=== PATIENT | male | born 1940 | race Caucasian/White ===

== ENCOUNTER 2016-12-14 17:16 | Inpatient (IN) | payer MEDICARE, OTHER ==
[~2016-12-14] VITALS: Ht 167.6 cm; Wt 76.8 kg
[2016-12-14 19:44] VITALS: BP 133/76; PULSE 79; RESP 18; TEMP 97.7; O2SAT 99
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
[2016-12-14 23:33] LABS: AUTOMATED NEUTROPHIL # 6.9 TH/MM3 (1.8-7.7); BASOPHIL # 0.1 TH/MM3 (0-0.2); BASOPHIL % 1.1 % (0.0-2.0); EOSINOPHIL # 0.5 TH/MM3 (0-0.4); HEMATOCRIT 41.1 % (39.0-51.0); HEMO FLAGS DIFF FINAL; LYMPH % 30.9 % (9.0-44.0); LYMPHOCYTE # 3.8 TH/MM3 (1.0-4.8); MEAN CELL VOLUME 86.7 FL (80.0-100.0); MEAN CORPUSCULAR HEMOGLOBIN 29.3 PG (27.0-34.0); MEAN CORPUSCULAR HGB CONC 33.8 % (32.0-36.0); MONO % 8.3 % (0.0-8.0); NEUT % 55.7 % (16.0-70.0); PLATELET COUNT 160 TH/MM3 (150-450); RED BLOOD COUNT 4.74 MIL/MM3 (4.50-5.90); RED CELL DISTRIBUTION WIDTH 12.8 % (11.6-17.2); WHITE BLOOD COUNT 12.3 TH/MM3 (4.0-11.0)
[2016-12-14 23:35] LABS: BLOOD, URINE NEG (NEG); GLUCOSE,URINE NEG (NEG); HYALINE CAST, URINE 1 /lpf (RARE); KETONE, URINE NEG (NEG); MUCUS URINE FEW /lpf (OCC); NITRITE,URINE NEG (NEG); PH, URINE 5.5 (5.0-8.5); SQUAMOUS EPITHELIAL CELL URINE <1 /hpf (0-5); TRANSITIONAL EPI CELLS, URINE <1 /hpf; URINE COLOR YELLOW (YELLW/STRAW)
[2016-12-14 23:37] LABS: COMMENT (UR) CULT NOT INDICATED; CULTURE IF INDICATED CULT NOT INDICATED
[2016-12-14 23:41] LABS: AMPHETAMINE, URINE NEG (NEG); BARBITURATES, URINE NEG (NEG); COCAINE, URINE NEG (NEG)
[2016-12-15 00:03] LABS: ANION GAP 12 MEQ/L (5-15); BICARBONATE 25.4 MEQ/L (21.0-32.0); BLOOD UREA NITROGEN 18 MG/DL (7-18); CHLORIDE 103 MEQ/L (98-107); GLOMERULAR FILTRATION RATE 75 ML/MIN (>89); POTASSIUM 3.6 MEQ/L (3.5-5.1); SODIUM (NA) 140 MEQ/L (136-145)
[2016-12-15 02:00] VITALS: BP 128/72; PULSE 81; RESP 14; O2SAT 100
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
[2016-12-15 07:54] VITALS: BP 131/70; PULSE 80; RESP 18; O2SAT 99
[2016-12-15] MEDS ORDERED: ACETAMINOPHEN 325 MG TAB PO PRN (11:00)
[2016-12-15] MEDS ORDERED: traZODone HCL 50 MG TAB PO PRN (11:00)
[2016-12-15] MEDS ORDERED: LORazepam 0.5 MG TAB PO PRN (11:00)
[2016-12-15] MEDS ORDERED: MAGNESIUM HYDROXIDE SUSP 30 ML CUP PO PRN (11:00)
[2016-12-15] MEDS ORDERED: LORazepam 2 MG/ML VIAL IM PRN ×2 (11:00)
[2016-12-15] MEDS ORDERED: ALUMINUM/MAGNESIUM/SIMETH 30 ML CUP PO PRN (11:00)
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
[2016-12-15 13:13] VITALS: BP 130/68; PULSE 78; RESP 20; O2SAT 99
[2016-12-15 14:00] VITALS: BP 186/84; PULSE 61; RESP 16; TEMP 97.6
[2016-12-15 17:49] VITALS: BP 136/70; PULSE 89; RESP 20; TEMP 97.8; O2SAT 90
[2016-12-15] MEDS ORDERED: METFPOW PO (18:30)
[2016-12-15] MEDS ORDERED: DEPA125T PO (18:30)
[2016-12-15] MEDS ORDERED: [UNRECOGNIZED DRUG - CODE] PO (18:30)
[2016-12-15] MEDS ORDERED: ALLO300T2 PO (18:30)
[2016-12-15] MEDS ORDERED: ASPI-110 PO (18:30)
[2016-12-15] MEDS ORDERED: CHOL1TAB42 PO (18:30)
[2016-12-15] MEDS ORDERED: CYAN100025 PO (18:30)
[2016-12-15] MEDS ORDERED: CARV12.52 PO (18:30)
[2016-12-15] MEDS ORDERED: CITA10SO5 PO (18:30)
[2016-12-15] MEDS ORDERED: MIRT1TAB PO (18:30)
[2016-12-15] MEDS ORDERED: OMEP20TA PO (18:30)
[2016-12-15] MEDS ORDERED: LYRI150C PO (18:30)
[2016-12-15] MEDS: REMOVE OLD NICODERM (NICOTINE) PATCH T-DERMAL SCH (21:00)
[2016-12-15] MEDS: LORazepam 1 MG TAB PO PRN (22:55)
[2016-12-16 06:00] VITALS: BP 144/63; PULSE 77; RESP 18; TEMP 98.1
[2016-12-16 08:33] LABS: AUTOMATED NEUTROPHIL # 5.6 TH/MM3 (1.8-7.7); BASOPHIL # 0.1 TH/MM3 (0-0.2); BASOPHIL % 0.6 % (0.0-2.0); EOSINOPHIL # 0.3 TH/MM3 (0-0.4); EOSINOPHIL % 2.9 % (0.0-4.0); HEMO FLAGS DIFF FINAL; LYMPH % 31.4 % (9.0-44.0); LYMPHOCYTE # 3.1 TH/MM3 (1.0-4.8); MEAN CELL VOLUME 85.4 FL (80.0-100.0); MEAN CORPUSCULAR HEMOGLOBIN 29.7 PG (27.0-34.0); MEAN CORPUSCULAR HGB CONC 34.7 % (32.0-36.0); MONO % 9.3 % (0.0-8.0); NEUT % 55.8 % (16.0-70.0); PLATELET COUNT 176 TH/MM3 (150-450); RED BLOOD COUNT 4.57 MIL/MM3 (4.50-5.90); RED CELL DISTRIBUTION WIDTH 13.4 % (11.6-17.2)
[2016-12-16] MEDS: NICOTINE 21 MG/24 HR PATCH T-DERMAL SCH (09:00)
[2016-12-16 09:13] LABS: ALKALINE PHOSPHATASE 79 U/L (45-117); ALT (GPT) 19 U/L (12-78); ANION GAP 9 MEQ/L (5-15); AST (GOT) 19 U/L (15-37); BICARBONATE 29.6 MEQ/L (21.0-32.0); BLOOD UREA NITROGEN 17 MG/DL (7-18); CHLORIDE 105 MEQ/L (98-107); GLOMERULAR FILTRATION RATE 75 ML/MIN (>89); HDL CHOLESTEROL 42.1 MG/DL (40.0-60.0); LDL CHOLESTEROL 63 MG/DL (0-99); POTASSIUM 3.5 MEQ/L (3.5-5.1); SODIUM (NA) 144 MEQ/L (136-145); TOTAL BILIRUBIN ADULT 0.5 MG/DL (0.2-1.0)
[2016-12-16] MEDS: ASPIRIN EC 81 MG TABEC PO SCH (12:15)
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
[2016-12-16] MEDS: PREGABALIN 75 MG CAP PO SCH ×2 (13:00→17:44)
--- NOTE | 2016-12-16 14:46 | EKG ---
Date Performed: 12/16/2016 Time Performed: 10:04:07 PTAGE: 76 years EKG: Sinus rhythm RIGHT BUNDLE BRANCH BLOCK ANTEROSEPTAL MYOCARDIAL INFARCTION , OF INDETERMINATE AGE ABNORMAL ECG NO PREVIOUS TRACING DOCTOR: Rony Hill Interpretating Date/Time 12/16/2016 14:46:07
[2016-12-16 18:00] VITALS: BP 125/65; PULSE 89; RESP 18; TEMP 98.1; O2SAT 98
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
[2016-12-16] MEDS: MIRTAZAPINE 15 MG TAB PO SCH (20:46)
[2016-12-16] MEDS: CARVEDILOL 12.5 MG TAB PO SCH (20:46)
[2016-12-16] MEDS: GALANTAMINE HYDROBROMIDE 4 MG TAB PO SCH (20:47)
[2016-12-16] MEDS: DIVALPROEX SODIUM SPRINKLES 125 MG CAP PO SCH (20:47)
[2016-12-16] MEDS: REMOVE OLD NICODERM (NICOTINE) PATCH T-DERMAL SCH (21:00)
[2016-12-17 06:17] VITALS: BP 133/69; PULSE 65; RESP 18; TEMP 99.2; O2SAT 99
[2016-12-17] MEDS: NICOTINE 21 MG/24 HR PATCH T-DERMAL SCH (09:00)
[2016-12-17] MEDS: CYANOCOBALAMIN 1,000 MCG TAB PO SCH (09:00)
[2016-12-17] MEDS: PREGABALIN 75 MG CAP PO SCH ×3 (09:32→18:01)
[2016-12-17] MEDS: DIVALPROEX SODIUM SPRINKLES 125 MG CAP PO SCH ×2 (09:32→21:17)
[2016-12-17] MEDS: GALANTAMINE HYDROBROMIDE 4 MG TAB PO SCH ×2 (09:32→21:16)
[2016-12-17] MEDS: metFORMIN HCL 500 MG TAB PO SCH (09:32)
[2016-12-17] MEDS: CITALOPRAM HYDROBROMIDE 20 MG TAB PO SCH (09:32)
[2016-12-17] MEDS: ALLOPURINOL 300 MG TAB PO SCH (09:32)
[2016-12-17] MEDS: CHOLECALCIFEROL (VIT D3) 1000 UNIT TAB PO SCH (09:32)
[2016-12-17] MEDS: CARVEDILOL 12.5 MG TAB PO SCH ×2 (09:32→21:16)
[2016-12-17] MEDS: ASPIRIN EC 81 MG TABEC PO SCH (09:32)
[2016-12-17] MEDS: PANTOPRAZOLE SOD 20 MG DELAYED RELEASE TAB PO SCH (09:33)
[2016-12-17 12:47] LABS: HEMOGLOBIN A1a 1.6 %; HEMOGLOBIN Ao 84.4 %; HEMOGLOBIN LA1C 1.8 %; HEMOGLOBIN P3 3.9 %
--- NOTE | 2016-12-17 13:24 | HHI.PYPN ---
Subjective Remarks Pt seen and discussed with staff. He has been seclusive to room but cooperative with care. Compliant with medications and denies side effects. He reported feeling depressed to RN earlier today but denies depression to MD, stating that he feels "happy". No SI/HI. 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 Estimated LOS: days Justification for Cont. Inpt. risk of decompensation Nataliya Murguia MD December 17, 2016 1:24 pm
[2016-12-17] MEDS: LORazepam 1 MG TAB PO PRN (14:35)
[2016-12-17 20:03] VITALS: BP 146/72; PULSE 71; RESP 18; TEMP 97.7; O2SAT 99
[2016-12-17] MEDS: REMOVE OLD NICODERM (NICOTINE) PATCH T-DERMAL SCH (21:00)
[2016-12-17] MEDS: MIRTAZAPINE 15 MG TAB PO SCH (21:16)
[2016-12-18 05:43] VITALS: BP 141/65; PULSE 68; RESP 18; TEMP 97.9; O2SAT 99
[2016-12-18] MEDS: ASPIRIN EC 81 MG TABEC PO SCH (08:18)
[2016-12-18] MEDS: metFORMIN HCL 500 MG TAB PO SCH (08:18)
[2016-12-18] MEDS: CARVEDILOL 12.5 MG TAB PO SCH ×2 (08:18→21:35)
[2016-12-18] MEDS: DIVALPROEX SODIUM SPRINKLES 125 MG CAP PO SCH ×2 (08:18→21:34)
[2016-12-18] MEDS: CITALOPRAM HYDROBROMIDE 20 MG TAB PO SCH (08:18)
[2016-12-18] MEDS: ALLOPURINOL 300 MG TAB PO SCH (08:19)
[2016-12-18] MEDS: GALANTAMINE HYDROBROMIDE 4 MG TAB PO SCH ×2 (08:19→21:35)
[2016-12-18] MEDS: PREGABALIN 75 MG CAP PO SCH ×3 (08:19→17:47)
[2016-12-18] MEDS: CHOLECALCIFEROL (VIT D3) 1000 UNIT TAB PO SCH (08:19)
[2016-12-18] MEDS: NICOTINE 21 MG/24 HR PATCH T-DERMAL SCH (08:19)
[2016-12-18] MEDS: PANTOPRAZOLE SOD 20 MG DELAYED RELEASE TAB PO SCH (08:19)
[2016-12-18] MEDS: CYANOCOBALAMIN 1,000 MCG TAB PO SCH (08:19)
[2016-12-18] MEDS: REMOVE OLD NICODERM (NICOTINE) PATCH T-DERMAL SCH (08:20)
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
[2016-12-18] MEDS ORDERED: MELATONIN 5 MG TAB PO PRN (14:45)
[2016-12-18] MEDS ORDERED: diphenhydrAMINE HCL 25 MG CAP PO PRN (14:45)
[2016-12-18] MEDS ORDERED: HALOPERIDOL 1 MG TAB PO PRN (14:45)
[2016-12-18] MEDS ORDERED: HALOPERIDOL LACTATE 5 MG/ML AMP IM PRN (14:45)
[2016-12-18] MEDS ORDERED: diphenhydrAMINE HCL 50 MG/ML VIAL IM PRN (14:45)
--- NOTE | 2016-12-18 16:15 | HHI.PR ---
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 denies fevers/chills denies headache, dizziness denies nausea, abdominal pain Objective Vitals Vital Signs Date Time Temp Pulse Resp B/P Pulse Ox O2 Delivery O2 Flow Rate FiO2 12/18/16 05:43 97.9 68 18 141/65 99 12/17/16 21:20 20 12/17/16 20:03 97.7 71 18 146/72 99 I/O 12/17/16 12/17/16 12/17/16 12/18/16 12/18/16 12/18/16 07:00 15:00 23:00 07:00 15:00 23:00 Intake Total 480 ml 0 ml 840 ml Output Total 1 ml Balance 479 ml 0 ml 840 ml Intake Oral 480 ml 0 ml 840 ml Output Stool Total 1 ml # Voids 3 1 Result Diagram: 12/16/1672912/16/16729 Objective Remarks GENERAL: This is a well-nourished, well-developed patient, in no apparent distress. SKIN: No rashes, ecchymoses or lesions. Cool and dry. HEAD: Atraumatic. Normocephalic. No temporal or scalp tenderness. EYES: Pupils equal round and reactive. Extraocular motions intact. No scleral icterus. No injection or drainage. ENT: Nose without bleeding, purulent drainage or septal hematoma. Throat without erythema, tonsillar hypertrophy or exudate. Uvula midline. Airway patent. NECK: Trachea midline. No JVD or lymphadenopathy. Supple, nontender, no meningeal signs. CARDIOVASCULAR: Regular rate and rhythm without murmurs, gallops, or rubs. RESPIRATORY: Faint crackles bilaterally. No rhonchi or wheezing auscultated. GASTROINTESTINAL: Abdomen soft, non-tender, nondistended. No hepato-splenomegaly , or palpable masses. No guarding. MUSCULOSKELETAL: Extremities without clubbing, cyanosis, or edema. No joint tenderness, effusion, or edema noted. No calf tenderness. Negative Homans sign bilaterally. R BKA - well healed stump. NEUROLOGICAL: Awake and alert. Cranial nerves II through XII intact. Motor and sensory grossly within normal limits. Five out of 5 muscle strength in all muscle groups. Normal speech. Medications and IVs Current Medications Medications (Trade) Dose Ordered Sig/Kenzie Route Start Time Stop Time Status Last Admin (Tylenol) 650 mg Q4H PRN PO 12/15/16 11:00 12/17/16 14:36 (Milk Of Magnesia Liq) 30 ml DAILY PRN PO 12/15/16 11:00 (Mag-Al Plus Susp Liq) 30 ml Q6H PRN PO 12/15/16 11:00 (Habitrol 21 Mg Patch.24 Hr) 1 patch DAILY T-DERMAL 12/16/16 09:00 Miscellaneous Information 1 HS T-DERMAL 12/15/16 21:00 (Zyloprim) 300 mg DAILY PO 12/17/16 09:00 12/18/16 08:19 (Ecotrin Ec) 81 mg DAILY PO 12/16/16 12:15 12/18/16 08:18 (Coreg) 12.5 mg BID PO 12/16/16 21:00 12/18/16 08:18 (Depakote Sprinkles) 125 mg BID PO 12/16/16 21:00 12/18/16 08:18 (Remeron) 7.5 mg HS PO 12/16/16 21:00 12/17/16 21:16 (Lyrica) 150 mg TID PO 12/16/16 13:00 12/18/16 13:00 (Vitamin B12) 1,000 mcg DAILY PO 12/17/16 09:00 12/18/16 08:19 (Razadyne) 12 mg BID PO 12/16/16 21:00 12/18/16 08:19 (Glucophage) 500 mg DAILY PO 12/17/16 09:00 12/18/16 08:18 (Protonix) 20 mg DAILY PO 12/17/16 09:00 12/18/16 08:19 (Vitamin D3) 2,000 units DAILY PO 12/17/16 09:00 12/18/16 08:19 (Haldol) 0.5 mg BID PO 12/18/16 21:00 (Haldol) 1 mg BID PRN PO 12/18/16 14:45 (Haldol Inj) 1 mg BID PRN IM 12/18/16 14:45 (Melatonin) 5 mg HS PRN PO 12/18/16 14:45 (Benadryl Inj) 25 mg Q6H PRN IM 12/18/16 14:45 (Benadryl) 25 mg Q6H PRN PO 12/18/16 14:45 Urinary Catheter: No Vascular Central Line Catheter: No A/P Problem List: (1) Dementia with aggressive behavior ICD Code: F03.91 Status: Acute Plan: management as per psychiatry Patient currently on Depakote, Celexa, Remeron, Razadyne, haloperidol (2) Diabetes ICD Code: E11.9 Status: Acute Plan: Blood sugar seems stable. Continue metformin. Hemoglobin A1c 5.9 - diabetes is controlled. (3) HTN (hypertension) ICD Code: I10 Status: Chronic Plan: Bp stable, continue coreg (4) Hyperlipidemia ICD Code: E78.5 Status: Chronic Plan: Which seemed to be diet controlled. Patient not on medications. Total cholesterol 135, LDL cholesterol 63. (5) Gout ICD Code: M10.9 Status: Acute Plan: on allopurinol, stable Assessment and Plan I will sign off please reconsult as needed. 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
[2016-12-18 17:19] LABS: BACTERIA, URINE RARE /hpf; BLOOD, URINE NEG (NEG); COMMENT (UR) CULT NOT INDICATED; CULTURE IF INDICATED CULT NOT INDICATED; GLUCOSE,URINE NEG (NEG); KETONE, URINE NEG (NEG); MUCUS URINE FEW /lpf (OCC); NITRITE,URINE NEG (NEG); PH, URINE 5.5 (5.0-8.5); SQUAMOUS EPITHELIAL CELL URINE <1 /hpf (0-5); URINE COLOR YELLOW (YELLW/STRAW)
[2016-12-18 18:29] VITALS: BP 136/65; PULSE 66; RESP 18; TEMP 98.9; O2SAT 100
[2016-12-18] MEDS: MIRTAZAPINE 15 MG TAB PO SCH (21:35)
[2016-12-18] MEDS: HALOPERIDOL 0.5 MG TAB PO SCH (21:35)
[2016-12-19 06:13] VITALS: BP 124/60; PULSE 56; RESP 18; TEMP 97.9; O2SAT 97
[2016-12-19] MEDS: PREGABALIN 75 MG CAP PO SCH ×3 (09:00→18:42)
[2016-12-19] MEDS: ASPIRIN EC 81 MG TABEC PO SCH (09:00)
[2016-12-19] MEDS: DIVALPROEX SODIUM SPRINKLES 125 MG CAP PO SCH ×2 (09:00→21:49)
[2016-12-19] MEDS: CYANOCOBALAMIN 1,000 MCG TAB PO SCH (09:00)
[2016-12-19] MEDS: HALOPERIDOL 0.5 MG TAB PO SCH ×2 (09:00→21:49)
[2016-12-19] MEDS: ALLOPURINOL 300 MG TAB PO SCH (09:00)
[2016-12-19] MEDS: NICOTINE 21 MG/24 HR PATCH T-DERMAL SCH (09:00)
[2016-12-19] MEDS: CARVEDILOL 12.5 MG TAB PO SCH ×2 (09:00→21:49)
[2016-12-19] MEDS: PANTOPRAZOLE SOD 20 MG DELAYED RELEASE TAB PO SCH (09:00)
[2016-12-19] MEDS: CHOLECALCIFEROL (VIT D3) 1000 UNIT TAB PO SCH (09:00)
[2016-12-19] MEDS: metFORMIN HCL 500 MG TAB PO SCH (09:00)
[2016-12-19] MEDS: GALANTAMINE HYDROBROMIDE 4 MG TAB PO SCH ×2 (09:00→21:49)
--- NOTE | 2016-12-19 10:47 | PD.TTN ---
Present for Treatment Team Treatment Team Staff: Provider, Nurse, Psych Therapist, Occupational Therapist Patient Problems 1. Discharge planning 2. Medication compliance 3. Knowledge deficit 4. Lack of coping skills Progress Toward Goals [facility] Nurse Input: Patient has had no behavioral issues on the unit and is overall plesant. Patient is oriented to place but not to situation. Patient believes that patient is at [facility] for prostetic leg. Psych Therapist Input: Counselor spoke with in regards placement. Once patient is stablized, patient will be able to return to [facility] Occupational Therapist Input: Patient is not participating in group. Kimberley Nelson [facility] December 19, 2016 10:47
--- NOTE | 2016-12-19 15:38 | HHI.PYPN ---
Subjective Remarks Patient seen and examined. Chart reviewed. Case discussed in treatment team. Nursing reports that the patient has been no behavioral problem. oral surgery technician reported to RN that patient's prosthesis cannot be fitted in house and so this will need to wait until after discharge; he is in a wheelchair presently. On my examination today, the patient is calm and cooperative with evaluation. He remains at his confused baseline. No psychotic symptoms. No evidence of behavioral disturbance. Denies side effects from medications. No physical complaints. Review of Systems ROS Limitations: Poor Historian Except as stated in HPI: all other systems reviewed are Neg Objective Alert: Yes [place]: Person Mood: Calm Affect: Euthymic Memory Intact: Comment (Impaired) Hallucinations: Other (No AVH) Delusions: No Delusion Type: Other (No delusions) Suicidal: Ideation (No SI) Homicidal: Ideation (No HI) Insight/Judgment Poor Remarks No motor abnormalities noted. Thought process somewhat scattered consistent with dementia diagnosis. Labs Test 12/18/16 16:00 Urine Color YELLOW Urine Turbidity CLEAR Urine pH 5.5 Urine Specific [place] 1.019 Urine Protein NEG mg/dL Urine Glucose (UA) NEG mg/dL Urine Ketones NEG mg/dL Urine Occult Blood NEG Urine Nitrite NEG Urine Bilirubin NEG Urine Urobilinogen LESS THAN 2.0 MG/DL Urine Leukocyte Esterase NEG Urine WBC 2 /hpf Urine Squamous Epithelial <1 /hpf Cells Urine Bacteria RARE /hpf Urine Mucus FEW /lpf Microscopic Urinalysis Comment CULT NOT INDICATED Labs reviewed. Vitals/IOs Vital Signs Date Time Temp Pulse Resp B/P Pulse Ox O2 Delivery O2 Flow Rate FiO2 12/19/16 06:13 97.9 56 18 124/60 97 12/15/16 13:13 Room Air Intake and Output 12/18/16 12/18/16 12/19/16 08:00 16:00 00:00 Intake Total 840 ml 1590 ml Balance 840 ml 1590 ml Assessment & Plan Problem List: (1) Dementia of Alzheimer's type with behavioral disturbance ICD Code: G30.8 Assessment & Plan Continue Haldol as ordered. Continue other psychotropics as ordered. Continue to monitor on the inpatient unit. Continue other medications and care as ordered. Justification for Cont. Inpt. High risk for decompensation in a less restrictive environment. Discharge Planning Placement. Unclear if patient is welcome to return to her existing placement. Counselor to explore this. Request HC Surrog/Guard Advoc?: Yes Problem Qualifiers (1) Dementia of Alzheimer's type with behavioral disturbance: Qualified Code: G30.8 - Alzheimer's dementia with behavioral disturbance, unspecified timing of dementia onset Mario Alberto Almanza MD December 19, 2016 15:38
[2016-12-19 17:20] VITALS: BP 157/64; PULSE 60; RESP 18; TEMP 96.7
[2016-12-19] MEDS: REMOVE OLD NICODERM (NICOTINE) PATCH T-DERMAL SCH (21:00)
[2016-12-19] MEDS: MIRTAZAPINE 15 MG TAB PO SCH (21:49)
[2016-12-20 05:56] VITALS: BP 142/66; PULSE 67; RESP 16; TEMP 98.2; O2SAT 95
[2016-12-20] MEDS: DIVALPROEX SODIUM SPRINKLES 125 MG CAP PO SCH ×2 (08:51→20:10)
[2016-12-20] MEDS: PREGABALIN 75 MG CAP PO SCH ×3 (08:51→18:38)
[2016-12-20] MEDS: CHOLECALCIFEROL (VIT D3) 1000 UNIT TAB PO SCH (08:51)
[2016-12-20] MEDS: ASPIRIN EC 81 MG TABEC PO SCH (08:51)
[2016-12-20] MEDS: ALLOPURINOL 300 MG TAB PO SCH (08:51)
[2016-12-20] MEDS: CARVEDILOL 12.5 MG TAB PO SCH ×2 (08:51→20:09)
[2016-12-20] MEDS: metFORMIN HCL 500 MG TAB PO SCH (08:52)
[2016-12-20] MEDS: PANTOPRAZOLE SOD 20 MG DELAYED RELEASE TAB PO SCH (08:52)
[2016-12-20] MEDS: CYANOCOBALAMIN 1,000 MCG TAB PO SCH (08:52)
[2016-12-20] MEDS: HALOPERIDOL 0.5 MG TAB PO SCH ×2 (08:52→20:10)
[2016-12-20] MEDS: NICOTINE 21 MG/24 HR PATCH T-DERMAL SCH (09:00)
[2016-12-20] MEDS: GALANTAMINE HYDROBROMIDE 4 MG TAB PO SCH ×2 (09:00→20:10)
--- NOTE | 2016-12-20 13:39 | HHI.PYPN ---
Subjective Remarks Patient seen and examined with nurse. Chart reviewed. Case discussed with nursing staff who reports that the patient was upset when he was served with papers related to the [place] this morning. When I evaluate the patient in the early afternoon, he has calmed. He says that he is "no longer worried" about the paperwork, although he does not seem to recall what it was about in the first place. He is at his confused baseline. Affect seems bright and generally euthymic. No side effects from medications. No physical complaints. Review of Systems ROS Limitations: Poor Historian Except as stated in HPI: all other systems reviewed are Neg Objective Alert: Yes [place]: Person Mood: Calm Affect: Appropriate Memory Intact: Comment (remains impaired on clinical exam) Hallucinations: Other (No AVH) Delusions: No Delusion Type: Other (no delusional material) Suicidal: Ideation (No SI) Homicidal: Ideation (No HI) Insight/Judgment Poor Remarks No abnormal motor movements noted. Thought process somewhat scattered consistent with dementia diagnosis. Labs Labs reviewed. Vitals/IOs Vital Signs Date Time Temp Pulse Resp B/P Pulse Ox O2 Delivery O2 Flow Rate FiO2 12/20/16 05:56 98.2 67 16 142/66 95 Intake and Output 12/19/16 12/19/16 12/20/16 08:00 16:00 00:00 Intake Total 390 ml Balance 390 ml Assessment & Plan Problem List: (1) Dementia of Alzheimer's type with behavioral disturbance ICD Code: G30.8 Assessment & Plan Continue Haldol as ordered. Continue Remeron and Depakote as ordered. Continue to monitor on the inpatient unit. Continue other medications and care as ordered. Justification for Cont. Inpt. High risk for decompensation in a less restrictive environment. 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 Discharge Planning Counselor tells me that [facility] is going to consider the patient for readmission to that facility. Request HC Surrog/Guard Advoc?: Yes Problem Qualifiers (1) Dementia of Alzheimer's type with behavioral disturbance: Qualified Code: G30.8 - Alzheimer's dementia with behavioral disturbance, unspecified timing of dementia onset Mario Alberto Almanza MD December 20, 2016 13:39
[2016-12-20 20:00] VITALS: BP 112/56; PULSE 65; RESP 18; TEMP 97.9
[2016-12-20] MEDS: MIRTAZAPINE 15 MG TAB PO SCH (20:10)
[2016-12-20] MEDS: REMOVE OLD NICODERM (NICOTINE) PATCH T-DERMAL SCH (20:11)
[2016-12-21 05:20] VITALS: BP 118/56; PULSE 61; RESP 16; TEMP 97.5; O2SAT 96
[2016-12-21 09:00] VITALS: BP 124/58; PULSE 73
[2016-12-21] MEDS: NICOTINE 21 MG/24 HR PATCH T-DERMAL SCH (09:00)
[2016-12-21] MEDS: ASPIRIN EC 81 MG TABEC PO SCH (09:22)
[2016-12-21] MEDS: metFORMIN HCL 500 MG TAB PO SCH (09:22)
[2016-12-21] MEDS: CARVEDILOL 12.5 MG TAB PO SCH ×2 (09:22→21:08)
[2016-12-21] MEDS: PREGABALIN 75 MG CAP PO SCH ×3 (09:22→17:19)
[2016-12-21] MEDS: ALLOPURINOL 300 MG TAB PO SCH (09:23)
[2016-12-21] MEDS: PANTOPRAZOLE SOD 20 MG DELAYED RELEASE TAB PO SCH (09:23)
[2016-12-21] MEDS: CYANOCOBALAMIN 1,000 MCG TAB PO SCH (09:23)
[2016-12-21] MEDS: HALOPERIDOL 0.5 MG TAB PO SCH ×2 (09:23→21:07)
[2016-12-21] MEDS: DIVALPROEX SODIUM SPRINKLES 125 MG CAP PO SCH ×2 (09:24→21:08)
[2016-12-21] MEDS: CHOLECALCIFEROL (VIT D3) 1000 UNIT TAB PO SCH (09:24)
[2016-12-21] MEDS: GALANTAMINE HYDROBROMIDE 4 MG TAB PO SCH ×2 (09:32→21:07)
--- NOTE | 2016-12-21 16:40 | HHI.PYPN ---
Subjective Remarks Patient seen and case discussed with nursing staff. Chart reviewed. Per RN, patient has been social. For me, patient is calm and pleasant. He remains in good behavioral control. No evident side effects from medications. Patient's case was presented to the [place] [facility] and placed in 4 week continuance. Review of Systems ROS Limitations: Poor Historian Except as stated in HPI: all other systems reviewed are Neg Objective Alert: Yes [place]: Person Mood: Calm Affect: Euthymic Memory Intact: Comment (Impaired) Hallucinations: Other (None) Delusions: No Delusion Type: Other (None) Suicidal: Ideation (No SI) Homicidal: Ideation (No HI) Insight/Judgment poor Remarks No motor abnormalities noted. Labs Labs reviewed. Vitals/IOs Vital Signs Date Time Temp Pulse Resp B/P Pulse Ox O2 Delivery O2 Flow Rate FiO2 12/21/16 09:00 73 124/58 12/21/16 05:20 97.5 16 96 Intake and Output 12/20/16 12/20/16 12/21/16 08:00 16:00 00:00 Intake Total 1200 ml 840 ml Balance 1200 ml 840 ml Assessment & Plan Problem List: (1) Dementia of Alzheimer's type with behavioral disturbance ICD Code: G30.8 Assessment & Plan Continue Haldol and other psychotropics as ordered. Continue other medications and care as ordered. Justification for Cont. Inpt. High risk for decompensation in a less restrictive environment. Discharge Planning Return to facility versus new placement. Request HC Surrog/Guard Advoc?: Yes Problem Qualifiers (1) Dementia of Alzheimer's type with behavioral disturbance: Qualified Code: G30.8 - Alzheimer's dementia with behavioral disturbance, unspecified timing of dementia onset Mario Alberto Almanza MD Dec 21, 2016 16:40
[2016-12-21 18:00] VITALS: BP 123/58; PULSE 68; RESP 17; TEMP 97.8; O2SAT 95
[2016-12-21] MEDS: REMOVE OLD NICODERM (NICOTINE) PATCH T-DERMAL SCH (21:00)
[2016-12-21] MEDS: MIRTAZAPINE 15 MG TAB PO SCH (21:08)
[2016-12-22 06:00] VITALS: BP 131/63; PULSE 66; RESP 18; TEMP 97.9
[2016-12-22] MEDS: NICOTINE 21 MG/24 HR PATCH T-DERMAL SCH (09:00)
[2016-12-22] MEDS: CYANOCOBALAMIN 1,000 MCG TAB PO SCH (09:12)
[2016-12-22] MEDS: DIVALPROEX SODIUM SPRINKLES 125 MG CAP PO SCH ×2 (09:13→21:19)
[2016-12-22] MEDS: PREGABALIN 75 MG CAP PO SCH ×3 (09:13→16:53)
[2016-12-22] MEDS: metFORMIN HCL 500 MG TAB PO SCH (09:13)
[2016-12-22] MEDS: ASPIRIN EC 81 MG TABEC PO SCH (09:13)
[2016-12-22] MEDS: CHOLECALCIFEROL (VIT D3) 1000 UNIT TAB PO SCH (09:13)
[2016-12-22] MEDS: GALANTAMINE HYDROBROMIDE 4 MG TAB PO SCH ×2 (09:13→21:19)
[2016-12-22] MEDS: PANTOPRAZOLE SOD 20 MG DELAYED RELEASE TAB PO SCH (09:13)
[2016-12-22] MEDS: CARVEDILOL 12.5 MG TAB PO SCH ×2 (09:14→21:20)
[2016-12-22] MEDS: ALLOPURINOL 300 MG TAB PO SCH (09:14)
[2016-12-22] MEDS: HALOPERIDOL 0.5 MG TAB PO SCH ×2 (09:14→21:20)
--- NOTE | 2016-12-22 17:51 | HHI.PYPN ---
Subjective Remarks Patient seen and examined. Chart reviewed. Case discussed with nursing staff who reports the patient slept well overnight and has been no behavioral problem. On my examination today, the patient is out socializing in the day area. He is in good spirits. No evidence of any psychotic process. No SI or HI voiced. No physical complaints. No side effects from medications. Review of Systems ROS Limitations: Poor Historian Except as stated in HPI: all other systems reviewed are Neg Objective Alert: Yes [place]: Person Mood: Calm Affect: Euthymic (remains euthymic) Memory Intact: Comment (remains impaired on clinical exam) Hallucinations: Other (no AVH) Delusions: No Delusion Type: Other (no delusions) Suicidal: Ideation (No SI) Homicidal: Ideation (No HI) Insight/Judgment Poor Remarks No motor abnormalities noted Labs Labs reviewed. Vitals/IOs Vital Signs Date Time Temp Pulse Resp B/P Pulse Ox O2 Delivery O2 Flow Rate FiO2 12/22/16 06:00 97.9 66 18 131/63 12/21/16 18:00 95 Intake and Output 12/21/16 12/21/16 12/22/16 08:00 16:00 00:00 Intake Total 480 ml 960 ml 960 ml Balance 480 ml 960 ml 960 ml Assessment & Plan Problem List: (1) Dementia of Alzheimer's type with behavioral disturbance ICD Code: G30.8 Assessment & Plan Continue Haldol as ordered. Continue to monitor on the inpatient unit. Continue other medications and care as ordered. Justification for Cont. Inpt. High risk for decompensation in a less restrictive environment. Discharge Planning Placement either at referring facility or new facility Request HC Surrog/Guard Advoc?: Yes Problem Qualifiers (1) Dementia of Alzheimer's type with behavioral disturbance: Qualified Code: G30.8 - Alzheimer's dementia with behavioral disturbance, unspecified timing of dementia onset Mario Alberto Almanza MD Dec 22, 2016 17:51
[2016-12-22 19:32] VITALS: BP 116/66; PULSE 92; RESP 16; TEMP 97.6; O2SAT 96
[2016-12-22] MEDS: REMOVE OLD NICODERM (NICOTINE) PATCH T-DERMAL SCH (21:00)
[2016-12-22] MEDS: MIRTAZAPINE 15 MG TAB PO SCH (21:19)
[2016-12-23 05:43] VITALS: BP 131/58; PULSE 61; RESP 16; TEMP 97.7; O2SAT 96
[2016-12-23] MEDS: CYANOCOBALAMIN 1,000 MCG TAB PO SCH (09:00)
[2016-12-23] MEDS: NICOTINE 21 MG/24 HR PATCH T-DERMAL SCH (09:00)
[2016-12-23] MEDS: CHOLECALCIFEROL (VIT D3) 1000 UNIT TAB PO SCH (09:00)
[2016-12-23] MEDS: ALLOPURINOL 300 MG TAB PO SCH (09:04)
[2016-12-23] MEDS: PREGABALIN 75 MG CAP PO SCH ×3 (09:04→18:00)
[2016-12-23] MEDS: GALANTAMINE HYDROBROMIDE 4 MG TAB PO SCH ×2 (09:04→21:18)
[2016-12-23] MEDS: ASPIRIN EC 81 MG TABEC PO SCH (09:04)
[2016-12-23] MEDS: HALOPERIDOL 0.5 MG TAB PO SCH ×2 (09:05→21:18)
[2016-12-23] MEDS: metFORMIN HCL 500 MG TAB PO SCH (09:05)
[2016-12-23] MEDS: DIVALPROEX SODIUM SPRINKLES 125 MG CAP PO SCH ×2 (09:05→21:18)
[2016-12-23] MEDS: CARVEDILOL 12.5 MG TAB PO SCH ×2 (09:05→21:18)
[2016-12-23] MEDS: PANTOPRAZOLE SOD 20 MG DELAYED RELEASE TAB PO SCH (09:05)
--- NOTE | 2016-12-23 14:22 | HHI.PYPN ---
Subjective Remarks Pt presents for f/u. He has been calm and cooperative. Staff report some bizarre behavior (Trying to put amputated limb into a shoe and walk), but no agitation. He is irritable on approach and refuses to cooperate with MD interview. Objective Alert: Yes [place]: Person Mood: Calm Affect: Restricted Memory Intact: Comment (remains impaired on clinical exam) Hallucinations: Other (no AVH) Delusions: No Delusion Type: Other (no delusions) Suicidal: Ideation (No SI) Homicidal: Ideation (No HI) Insight/Judgment poor Vitals/IOs Vital Signs Date Time Temp Pulse Resp B/P Pulse Ox O2 Delivery O2 Flow Rate FiO2 12/23/16 14:01 16 12/23/16 05:43 97.7 61 131/58 96 Intake and Output 12/22/16 12/22/16 12/23/16 08:00 16:00 00:00 Intake Total 360 ml Balance 360 ml Assessment & Plan Problem List: (1) Dementia of Alzheimer's type with behavioral disturbance ICD Code: G30.8 Assessment & Plan Continue current tx plan. Estimated LOS: days Justification for Cont. Inpt. risk of decompensation Request HC Surrog/Guard Advoc?: Yes Problem Qualifiers (1) Dementia of Alzheimer's type with behavioral disturbance: Qualified Code: G30.8 - Alzheimer's dementia with behavioral disturbance, unspecified timing of dementia onset Nataliya Murguia MD Dec 23, 2016 14:22
[2016-12-23 18:00] VITALS: BP 124/56; PULSE 67; RESP 17; TEMP 96.7; O2SAT 98
[2016-12-23] MEDS: REMOVE OLD NICODERM (NICOTINE) PATCH T-DERMAL SCH (21:00)
[2016-12-23] MEDS: MIRTAZAPINE 15 MG TAB PO SCH (21:18)
[2016-12-24 06:00] VITALS: BP 131/62; PULSE 62; RESP 16; TEMP 98.1; O2SAT 96
[2016-12-24] MEDS: NICOTINE 21 MG/24 HR PATCH T-DERMAL SCH (09:00)
[2016-12-24] MEDS: CYANOCOBALAMIN 1,000 MCG TAB PO SCH (09:53)
[2016-12-24] MEDS: metFORMIN HCL 500 MG TAB PO SCH (09:53)
[2016-12-24] MEDS: ALLOPURINOL 300 MG TAB PO SCH (09:53)
[2016-12-24] MEDS: PREGABALIN 75 MG CAP PO SCH ×3 (09:53→18:26)
[2016-12-24] MEDS: CHOLECALCIFEROL (VIT D3) 1000 UNIT TAB PO SCH (09:53)
[2016-12-24] MEDS: CARVEDILOL 12.5 MG TAB PO SCH ×2 (09:53→21:24)
[2016-12-24] MEDS: GALANTAMINE HYDROBROMIDE 4 MG TAB PO SCH ×2 (09:54→21:24)
[2016-12-24] MEDS: HALOPERIDOL 0.5 MG TAB PO SCH ×2 (09:54→21:24)
[2016-12-24] MEDS: ASPIRIN EC 81 MG TABEC PO SCH (09:54)
[2016-12-24] MEDS: DIVALPROEX SODIUM SPRINKLES 125 MG CAP PO SCH ×2 (09:54→21:23)
[2016-12-24] MEDS: PANTOPRAZOLE SOD 20 MG DELAYED RELEASE TAB PO SCH (09:54)
--- NOTE | 2016-12-24 12:22 | HHI.PYPN ---
Subjective Remarks Pt seen and discussed with staff. Pt has been cooperative with care. He slept well last night. No medication side effects. No SI/HI Objective Alert: Yes [place]: Person Mood: Calm Affect: Appropriate Memory Intact: Comment (remains impaired on clinical exam) Hallucinations: Other (no AVH) Delusions: No Delusion Type: Other (no delusions) Suicidal: Ideation (No SI) Homicidal: Ideation (No HI) Insight/Judgment poor Vitals/IOs Vital Signs Date Time Temp Pulse Resp B/P Pulse Ox O2 Delivery O2 Flow Rate FiO2 12/24/16 06:00 98.1 62 16 131/62 96 Intake and Output 12/23/16 12/23/16 12/24/16 08:00 16:00 00:00 Intake Total 0 ml 480 ml 840 ml Balance 0 ml 480 ml 840 ml Assessment & Plan Problem List: (1) Dementia of Alzheimer's type with behavioral disturbance ICD Code: G30.8 Assessment & Plan continue current tx plan . Estimated LOS: days Justification for Cont. Inpt. risk of decompensation Request HC Surrog/Guard Advoc?: Yes Problem Qualifiers (1) Dementia of Alzheimer's type with behavioral disturbance: Qualified Code: G30.8 - Alzheimer's dementia with behavioral disturbance, unspecified timing of dementia onset Nataliya Murguia MD Dec 24, 2016 12:22
[2016-12-24 18:55] VITALS: BP 121/58; PULSE 64; RESP 16; TEMP 98
[2016-12-24] MEDS: REMOVE OLD NICODERM (NICOTINE) PATCH T-DERMAL SCH (21:00)
[2016-12-24] MEDS: MIRTAZAPINE 15 MG TAB PO SCH (21:24)
[2016-12-25 06:13] VITALS: BP 117/58; PULSE 64; RESP 20; TEMP 97.3; O2SAT 97
[2016-12-25] MEDS: NICOTINE 21 MG/24 HR PATCH T-DERMAL SCH (09:00)
[2016-12-25] MEDS: HALOPERIDOL 0.5 MG TAB PO SCH ×2 (10:57→20:16)
[2016-12-25] MEDS: GALANTAMINE HYDROBROMIDE 4 MG TAB PO SCH ×2 (10:57→20:17)
[2016-12-25] MEDS: CARVEDILOL 12.5 MG TAB PO SCH ×2 (10:57→20:17)
[2016-12-25] MEDS: ALLOPURINOL 300 MG TAB PO SCH (10:58)
[2016-12-25] MEDS: metFORMIN HCL 500 MG TAB PO SCH (10:58)
[2016-12-25] MEDS: DIVALPROEX SODIUM SPRINKLES 125 MG CAP PO SCH ×2 (10:58→20:16)
[2016-12-25] MEDS: ASPIRIN EC 81 MG TABEC PO SCH (10:59)
[2016-12-25] MEDS: CHOLECALCIFEROL (VIT D3) 1000 UNIT TAB PO SCH (10:59)
[2016-12-25] MEDS: CYANOCOBALAMIN 1,000 MCG TAB PO SCH (10:59)
[2016-12-25] MEDS: PANTOPRAZOLE SOD 20 MG DELAYED RELEASE TAB PO SCH (10:59)
[2016-12-25] MEDS: PREGABALIN 75 MG CAP PO SCH ×3 (10:59→18:13)
--- NOTE | 2016-12-25 14:40 | HHI.PYPN ---
Subjective Remarks Patient seen and examined with nurse. Chart reviewed. Case discussed with nursing staff reports the patient has had no episodes of agitation. On my examination today, the patient is sitting calmly in the day area. He is at his confused baseline but complains of feeling somewhat more tired than usual. He denies any pain or other physical complaints. No side effects from medications. No other issues noted. Review of Systems ROS Limitations: Poor Historian Except as stated in HPI: all other systems reviewed are Neg Objective Alert: Yes [place]: Person (person only) Mood: Calm Affect: Blunted Memory Intact: Comment (impaired) Hallucinations: Other (no AVH) Delusions: No Delusion Type: Other (no delusional material) Suicidal: Ideation (No SI) Homicidal: Ideation (No HI) Insight/Judgment Poor Remarks No abnormal motor movements noted Labs Labs reviewed. Vitals/IOs Vital Signs Date Time Temp Pulse Resp B/P Pulse Ox O2 Delivery O2 Flow Rate FiO2 12/25/16 06:13 97.3 64 20 117/58 97 Intake and Output 12/24/16 12/24/16 12/25/16 08:00 16:00 00:00 Intake Total 240 ml 840 ml 870 ml Balance 240 ml 840 ml 870 ml Assessment & Plan Problem List: (1) Dementia of Alzheimer's type with behavioral disturbance ICD Code: G30.8 Assessment & Plan Patient complains of feeling somewhat more tired today without obvious cause. It does not appear that he has received any medications other than his scheduled medications, which are not recently changed. It appears he slept his usual amount last night. I will check an updated set of basic laboratories. Continue to monitor on the inpatient unit. Continue other medications and care as ordered. Justification for Cont. Inpt. Risk for decompensation in a less restrictive environment. Discharge Planning Return to referring facility versus new placement. Case discussed with counselor. Request HC Surrog/Guard Advoc?: Yes Problem Qualifiers (1) Dementia of Alzheimer's type with behavioral disturbance: Qualified Code: G30.8 - Alzheimer's dementia with behavioral disturbance, unspecified timing of dementia onset Mario Alberto Almanza MD Dec 25, 2016 14:40
[2016-12-25 18:00] VITALS: BP 122/58; PULSE 71; RESP 18; TEMP 98.3; O2SAT 97
[2016-12-25] MEDS: MIRTAZAPINE 15 MG TAB PO SCH (20:17)
[2016-12-25] MEDS: REMOVE OLD NICODERM (NICOTINE) PATCH T-DERMAL SCH (21:00)
[2016-12-26 05:51] VITALS: BP 125/59; PULSE 61; RESP 17; TEMP 97.6; O2SAT 99
[2016-12-26 07:49] LABS: BASOPHIL % 0.4 % (0.0-2.0); EOSINOPHIL # 0.4 TH/MM3 (0-0.4); EOSINOPHIL % 3.9 % (0.0-4.0); HEMO FLAGS DIFF FINAL; LYMPH % 31.7 % (9.0-44.0); LYMPHOCYTE # 2.9 TH/MM3 (1.0-4.8); MEAN CELL VOLUME 85.8 FL (80.0-100.0); MEAN CORPUSCULAR HEMOGLOBIN 29.9 PG (27.0-34.0); MEAN CORPUSCULAR HGB CONC 34.9 % (32.0-36.0); MONO % 9.5 % (0.0-8.0); NEUT % 54.5 % (16.0-70.0); PLATELET COUNT 160 TH/MM3 (150-450); RED BLOOD COUNT 4.65 MIL/MM3 (4.50-5.90); RED CELL DISTRIBUTION WIDTH 13.1 % (11.6-17.2); WHITE BLOOD COUNT 9.1 TH/MM3 (4.0-11.0)
[2016-12-26 08:11] LABS: ALT (GPT) 18 U/L (12-78); ANION GAP 8 MEQ/L (5-15); AST (GOT) 17 U/L (15-37); BICARBONATE 30.5 MEQ/L (21.0-32.0); CHLORIDE 104 MEQ/L (98-107); GLOMERULAR FILTRATION RATE 76 ML/MIN (>89); POTASSIUM 3.8 MEQ/L (3.5-5.1); SODIUM (NA) 142 MEQ/L (136-145)
[2016-12-26 08:16] LABS: ALKALINE PHOSPHATASE 79 U/L (45-117); BLOOD UREA NITROGEN 21 MG/DL (7-18); TOTAL BILIRUBIN ADULT 0.3 MG/DL (0.2-1.0)
[2016-12-26] MEDS: CARVEDILOL 12.5 MG TAB PO SCH ×2 (09:00→21:00)
[2016-12-26] MEDS: NICOTINE 21 MG/24 HR PATCH T-DERMAL SCH (09:00)
[2016-12-26 10:04] VITALS: BP 109/58; PULSE 68
[2016-12-26] MEDS: HALOPERIDOL 0.5 MG TAB PO SCH ×2 (10:06→21:00)
[2016-12-26] MEDS: DIVALPROEX SODIUM SPRINKLES 125 MG CAP PO SCH ×2 (10:06→21:00)
[2016-12-26] MEDS: PREGABALIN 75 MG CAP PO SCH ×3 (10:06→18:12)
[2016-12-26] MEDS: CYANOCOBALAMIN 1,000 MCG TAB PO SCH (10:06)
[2016-12-26] MEDS: ASPIRIN EC 81 MG TABEC PO SCH (10:06)
[2016-12-26] MEDS: PANTOPRAZOLE SOD 20 MG DELAYED RELEASE TAB PO SCH (10:06)
[2016-12-26] MEDS: CHOLECALCIFEROL (VIT D3) 1000 UNIT TAB PO SCH (10:06)
[2016-12-26] MEDS: GALANTAMINE HYDROBROMIDE 4 MG TAB PO SCH ×2 (10:06→21:00)
[2016-12-26] MEDS: metFORMIN HCL 500 MG TAB PO SCH (10:07)
[2016-12-26] MEDS: ALLOPURINOL 300 MG TAB PO SCH (10:07)
--- NOTE | 2016-12-26 11:25 | PD.TTN ---
Present for Treatment Team Treatment Team Staff: Provider (Dr. Almanza), Nurse (Rhonda), Psych Therapist (Kimberley), Occupational Therapist (Homero) Patient Problems 1. Discharge planning 2. Medication compliance 3. Knowledge deficit 4. Lack of coping skills Progress Toward Goals Provider Input: Patient has some medication changes but overall has been medication compliant. No side effects from medications. Nurse Input: Patient is noted to have some minor behavioral issues with PT but nothing overly aggressive. Patient is cooperative and easily redirected. Psych Therapist Input: Patient is plesently confused with little to no behavioral issues on the unit. Counselor is waiting for update from previous facility [facility] on whether patient may return. If patient is unable to return, counselor will look for other placements. Occupational Therapist Input: Patient requires verbal redirection to participate in groups. Kimberley Nelson RMI Dec 26, 2016 11:25
--- NOTE | 2016-12-26 12:05 | HHI.PYPN ---
Subjective Remarks Patient seen and examined. Chart reviewed. Case discussed in treatment team with nurse, counselor and occupational therapist. No behaviors noted per nursing staff. On my examination today, patient is calm and cooperative with exam. He remains confused as at baseline. He verbalizes no issues with mood, no psychotic symptoms. No physical complaints and denies side effects from medications. Review of Systems ROS Limitations: Poor Historian Except as stated in HPI: all other systems reviewed are Neg Objective Alert: Yes [place]: Person Mood: Calm Affect: Euthymic Memory Intact: Comment (remains impaired on clinical exam) Hallucinations: Other (no AVH) Delusions: No Delusion Type: Other (No delusions) Suicidal: Ideation (No SI) Homicidal: Ideation (No HI) Insight/Judgment Poor Remarks No motor abnormalities noted. Labs Test 12/26/16 06:49 White Blood Count 9.1 TH/MM3 Red Blood Count 4.65 MIL/MM3 Hemoglobin 13.9 GM/DL Hematocrit 40.0 % Mean Corpuscular Volume 85.8 FL Mean Corpuscular Hemoglobin 29.9 PG Mean Corpuscular Hemoglobin 34.9 % Concent Red Cell Distribution Width 13.1 % Platelet Count 160 TH/MM3 Mean Platelet Volume 10.0 FL Neutrophils (%) (Auto) 54.5 % Lymphocytes (%) (Auto) 31.7 % Monocytes (%) (Auto) 9.5 % Eosinophils (%) (Auto) 3.9 % Basophils (%) (Auto) 0.4 % Neutrophils # (Auto) 5.0 TH/MM3 Lymphocytes # (Auto) 2.9 TH/MM3 Monocytes # (Auto) 0.9 TH/MM3 Eosinophils # (Auto) 0.4 TH/MM3 Basophils # (Auto) 0.0 TH/MM3 CBC Comment DIFF FINAL Differential Comment Sodium Level 142 MEQ/L Potassium Level 3.8 MEQ/L Chloride Level 104 MEQ/L Carbon Dioxide Level 30.5 MEQ/L Anion Gap 8 MEQ/L Blood Urea Nitrogen 21 MG/DL Creatinine 0.96 MG/DL Estimat Glomerular Filtration 76 ML/MIN Rate Random Glucose 110 MG/DL Calcium Level 9.7 MG/DL Total Bilirubin 0.3 MG/DL Aspartate Amino Transf 17 U/L (AST/SGOT) Alanine Aminotransferase 18 U/L (ALT/SGPT) Alkaline Phosphatase 79 U/L Total Protein 7.1 GM/DL Albumin 3.6 GM/DL Labs reviewed. CBC unremarkable. CMP unremarkable except for stable, mildly decreased GFR. Vitals/IOs Vital Signs Date Time Temp Pulse Resp B/P Pulse Ox O2 Delivery O2 Flow Rate FiO2 12/26/16 10:04 68 109/58 12/26/16 05:51 97.6 17 99 Intake and Output 12/25/16 12/25/16 12/26/16 08:00 16:00 00:00 Intake Total 0 ml 840 ml 1080 ml Balance 0 ml 840 ml 1080 ml Assessment & Plan Problem List: (1) Dementia of Alzheimer's type with behavioral disturbance ICD Code: G30.8 Assessment & Plan Continue Haldol and other psychotropics as ordered. BP parameters for antihypertensives. Continue to monitor on inpatient unit. Continue other medications and care as ordered. Justification for Cont. Inpt. High risk for decompensation in less restrictive environment. Discharge Planning Placement. Counselor reports that existing facility is procrastinating in letting us know definitively whether they will accept the patient back. We will pursue plan to return to existing facility and counselor will begin making new referrals to other facilities as well. Request HC Surrog/Guard Advoc?: Yes Problem Qualifiers (1) Dementia of Alzheimer's type with behavioral disturbance: Qualified Code: G30.8 - Alzheimer's dementia with behavioral disturbance, unspecified timing of dementia onset Mario Alberto Almanza MD Dec 26, 2016 12:05
[2016-12-26 18:04] VITALS: BP 114/58; PULSE 71; RESP 16; TEMP 97.8; O2SAT 99
[2016-12-26] MEDS: REMOVE OLD NICODERM (NICOTINE) PATCH T-DERMAL SCH (21:00)
[2016-12-26] MEDS: MIRTAZAPINE 15 MG TAB PO SCH (21:00)
[2016-12-27 05:31] VITALS: BP 137/64; PULSE 63; RESP 18; TEMP 97.6; O2SAT 99
[2016-12-27] MEDS: NICOTINE 21 MG/24 HR PATCH T-DERMAL SCH (09:00)
[2016-12-27] MEDS: DIVALPROEX SODIUM SPRINKLES 125 MG CAP PO SCH ×2 (09:00→20:16)
[2016-12-27] MEDS: ASPIRIN EC 81 MG TABEC PO SCH (09:49)
[2016-12-27] MEDS: ALLOPURINOL 300 MG TAB PO SCH (09:49)
[2016-12-27] MEDS: CYANOCOBALAMIN 1,000 MCG TAB PO SCH (09:49)
[2016-12-27] MEDS: PANTOPRAZOLE SOD 20 MG DELAYED RELEASE TAB PO SCH (09:49)
[2016-12-27] MEDS: HALOPERIDOL 0.5 MG TAB PO SCH ×2 (09:49→20:16)
[2016-12-27] MEDS: metFORMIN HCL 500 MG TAB PO SCH (09:49)
[2016-12-27] MEDS: CHOLECALCIFEROL (VIT D3) 1000 UNIT TAB PO SCH (09:49)
[2016-12-27] MEDS: CARVEDILOL 12.5 MG TAB PO SCH ×2 (09:50→20:16)
[2016-12-27] MEDS: GALANTAMINE HYDROBROMIDE 4 MG TAB PO SCH ×2 (09:50→20:16)
[2016-12-27] MEDS: PREGABALIN 75 MG CAP PO SCH ×3 (09:51→18:41)
--- NOTE | 2016-12-27 15:13 | HHI.PYPN ---
Subjective Remarks Patient seen and examined. Chart reviewed. Case discussed with nursing staff who reports patient continues to be no behavioral problem on the unit. On my examination today, the patient is in good spirits. He is calm and cooperative with the evaluation. He remains confused as at baseline. No psychotic symptoms. No mood symptoms. No SI or HI. No side effects from medications. No physical complaints. Review of Systems ROS Limitations: Poor Historian Except as stated in HPI: all other systems reviewed are Neg Objective Alert: Yes [place]: Person Mood: Calm Affect: Euthymic (remains euthymic) Memory Intact: Comment (impaired) Hallucinations: Other (no AVH) Delusions: No Delusion Type: Other (no delusional material) Suicidal: Ideation (No SI) Homicidal: Ideation (No HI) Insight/Judgment Poor Remarks No motor abnormalities noted Labs Labs reviewed Vitals/IOs Vital Signs Date Time Temp Pulse Resp B/P Pulse Ox O2 Delivery O2 Flow Rate FiO2 12/27/16 05:31 97.6 63 18 137/64 99 Intake and Output 12/26/16 12/26/16 12/27/16 08:00 16:00 00:00 Intake Total 240 ml Balance 240 ml Assessment & Plan Problem List: (1) Dementia of Alzheimer's type with behavioral disturbance ICD Code: G30.8 Assessment & Plan Continue current psychiatric medications as ordered. Continue other medications and care as ordered. Justification for Cont. Inpt. High risk for decompensation in a less restrictive environment. Discharge Planning I see from counselor's notes that patient's facility is coming to evaluate him tomorrow for possible return there. Request HC Surrog/Guard Advoc?: Yes Problem Qualifiers (1) Dementia of Alzheimer's type with behavioral disturbance: Qualified Code: G30.8 - Alzheimer's dementia with behavioral disturbance, unspecified timing of dementia onset Mario Alberto Almanza MD Dec 27, 2016 15:13
[2016-12-27 19:49] VITALS: BP 113/56; PULSE 72; RESP 19; TEMP 97.8
[2016-12-27] MEDS: MIRTAZAPINE 15 MG TAB PO SCH (20:16)
[2016-12-27] MEDS: REMOVE OLD NICODERM (NICOTINE) PATCH T-DERMAL SCH (20:31)
[2016-12-28 05:00] VITALS: BP 117/60; PULSE 62; RESP 16; TEMP 98.4; O2SAT 95
[2016-12-28] MEDS: PANTOPRAZOLE SOD 20 MG DELAYED RELEASE TAB PO SCH (08:53)
[2016-12-28] MEDS: GALANTAMINE HYDROBROMIDE 4 MG TAB PO SCH (08:54)
[2016-12-28] MEDS: CARVEDILOL 12.5 MG TAB PO SCH (08:54)
[2016-12-28] MEDS: ALLOPURINOL 300 MG TAB PO SCH (08:55)
[2016-12-28] MEDS: CYANOCOBALAMIN 1,000 MCG TAB PO SCH (08:55)
[2016-12-28] MEDS: PREGABALIN 75 MG CAP PO SCH ×2 (08:55→12:28)
[2016-12-28] MEDS: CHOLECALCIFEROL (VIT D3) 1000 UNIT TAB PO SCH (08:56)
[2016-12-28] MEDS: DIVALPROEX SODIUM SPRINKLES 125 MG CAP PO SCH (08:56)
[2016-12-28] MEDS: ASPIRIN EC 81 MG TABEC PO SCH (08:56)
[2016-12-28] MEDS: metFORMIN HCL 500 MG TAB PO SCH (08:57)
[2016-12-28] MEDS: HALOPERIDOL 0.5 MG TAB PO SCH (08:57)
[2016-12-28] MEDS: NICOTINE 21 MG/24 HR PATCH T-DERMAL SCH (09:00)
--- NOTE | 2016-12-28 10:54 | HHI.PYPN ---
Objective Alert: Yes [place]: Person Mood: Calm Affect: Euthymic (remains euthymic) Memory Intact: Comment (impaired) Hallucinations: Other (no AVH) Delusions: No Delusion Type: Other (no delusional material) Suicidal: Ideation (No SI) Homicidal: Ideation (No HI) Vitals/IOs Vital Signs Date Time Temp Pulse Resp B/P Pulse Ox O2 Delivery O2 Flow Rate FiO2 12/28/16 05:00 98.4 62 16 117/60 95 Intake and Output 12/27/16 12/27/16 12/28/16 08:00 16:00 00:00 Intake Total 240 ml 840 ml 1110 ml Balance 240 ml 840 ml 1110 ml Assessment & Plan Problem List: (1) Dementia of Alzheimer's type with behavioral disturbance ICD Code: G30.8 Assessment & Plan Estimated LOS: days Request HC Surrog/Guard Advoc?: Yes Problem Qualifiers (1) Dementia of Alzheimer's type with behavioral disturbance: Qualified Code: G30.8 - Alzheimer's dementia with behavioral disturbance, unspecified timing of dementia onset Mario Alberto Almanza MD Dec 28, 2016 10:54
[2016-12-28] MEDS ORDERED: MIRT1TAB PO (11:26)
[2016-12-28] MEDS ORDERED: [UNRECOGNIZED DRUG - CODE] PO (11:26)
[2016-12-28] MEDS ORDERED: HALO0.5T PO (11:26)
--- NOTE | 2016-12-28 11:26 | HHI.DS ---
Psychiatry Discharge Summary Inpatient Psychiatric care?: Yes Advance Directive: No Mental Health AdvanceDirective: No Health Care Proxy: No Admission Admission Date December 15, 2016 at 10:55 Admission Diagnosis: (1) Dementia due to medical condition with behavioral disturbance ICD Code: F02.81 Brief History Pt was seen and chart reviewed. Pt is a 76 YOWM with a hx of dementia who was admitted to [facility] under a BA secondary to aggressive behavior at custodial. Pt is oriented only to person and exhibites severe cognitive impairment. He is confused and wandering. He is a very poor historian and unable to provide any meaniful history. He states that he is here because he had a heart attack. He is easily agitated. Tobacco Use In Past 30 Days: No Tobacco Past 30 Days Alcohol Use: Never Hospital Course Patient was admitted to a locked, inpatient psychiatric unit. Appropriate precautions were in place throughout patient's hospital stay. A general medical consultation was obtained. Patient was seen and examined on the unit by psychiatry and also visited by counselor. Medications were adjusted. The patient responded nicely to the addition of a low-dose of oral Haldol. Patient tolerated medication changes well without side effects. Patient had improvement in his presenting psychiatric symptomatology during the course of his hospital stay. There was no evidence of any suicidality or homicidality on the inpatient unit. Patient's behavior remained in good control, and there was certainly no evidence of the sort of behavioral disturbance alleged in the presenting report. Counselor has arranged for the patient to return to his referring facility today. On the day of discharge: Patient seen and examined with nurse. Chart reviewed. Case discussed with nursing staff reports the patient has been no behavioral problem. On my examination today, the patient is in good spirits. He is calm and pleasant. No depressive or psychotic symptoms noted. He remains at his confused baseline. Charting indicates that the patient is eating and sleeping well. He does not verbalize any suicidal or homicidal ideation. No side effects from medications. No physical complaints. Weighing the acute, chronic, and protective factors and based on the available evidence, I sorority supervisor to a reasonable degree of medical certainty that the patient is at low imminent risk of harm to self or others from a mental illness as defined under the Nash act and his level of function is adequate for planned level of outpatient care. Dementia constitutes a chronic risk for harm but this risk would not be further ameliorated by a longer inpatient psychiatric hospital stay. The patient has maximized benefit from this inpatient psychiatric hospital stay and will be discharged to facility today with psychiatric follow-up as arranged by counselor. Patient is also to follow- up with primary care. Patient is to return to the psychiatric emergency room for any concerning psychiatric symptoms. Results Blood Pressure 117 / 60 Vital Signs Date Time Temp Pulse Resp B/P Pulse Ox O2 Delivery O2 Flow Rate FiO2 12/28/16 05:00 98.4 62 16 117/60 95 Laboratory Tests Test 12/26/16 06:49 Monocytes (%) (Auto) 9.5 % (0.0-8.0) Blood Urea Nitrogen 21 MG/DL (7-18) Estimat Glomerular Filtration 76 ML/MIN (>89) Rate Random Glucose 110 MG/DL (74-106) Summary of Procedures None done Imaging None done Pending results at discharge: No Medications # of Antipsychotic meds at D/C: 1 Approp Antipsych med options 1 - Minimum of three failed multiple trials of monotherapy. 2 - Documented plan to taper to monotherapy due to previous use of multiple meds OR cross-taper in progress at D/C. 3 - Documentation of augmentation of Clozapine. 4 - Justification other than those listed in allowable values 1-3, document here : Discharge Discharge Date: Dec 28, 2016 Discharge Diagnosis: (1) Dementia of Alzheimer's type with behavioral disturbance Diagnosis: Principal (behavioral disturbance resolved) ICD Code: G30.8 Mental Status Exam at Disch Patient is casually dressed. He is fairly well groomed and certainly maintaining basic hygiene. He is awake and alert and oriented to person. No abnormal motor movements noted. Speech is within normal limits for rate, tone and volume. Language and fund of knowledge along with memory are reduced. Mood is good and affect is euthymic. Thought process remains somewhat scattered in the setting of his dementia diagnosis. No delusions noted. No audiovisual hallucinations. No suicidal or homicidal ideation, intent or plan. Insight and judgment are chronically poor. Pt Condition on Discharge: Stable Discharge Disposition: ACLF/RESIDENTIAL Discharge Instructions Diet Instructions: Diabetic Diet Activities you can perform: Weight Bearing as Yamil Scheduled Appointment: as per counselor's notes New Medications: Haloperidol (Haloperidol) 0.5 Mg Tab 0.5 MG PO BID Mental Health Days 15 Ref 1 TAB Continued Medications: Allopurinol (Allopurinol) 300 Mg Tab 300 MG PO DAILY Gout #[address] Ref [address] (Aspirin 81) 81 Mg Tabdr 81 MG PO DAILY Ref 0 TAB Carvedilol (Carvedilol) 12.5 Mg Tab 12.5 MG PO BID Blood Pressure Management #60 Ref 0 TAB Cholecalciferol (Vitamin D-3) 2,000 Unit Tab 2000 PO DAILY Nutritional Supplement Cyanocobalamin (B-12) 1,000 Mcg Subl 1000 MCG PO DAILY Nutritional Supplement Ref [address] (Depakote DR) 125 Mg Tabdr 125 MG PO BID #60 Ref 0 TAB Galantamine ER (Razadyne ER) 24 Mg Caper 24 MG PO DAILY Alzheimer's Dementia Days 15 Ref 1 CAP (This prescription has been renewed) Metformin HCl (Bulk) (Metformin HCl) 1 Pow Pow 500 MG PO DAILY Mirtazapine (Mirtazapine) 7.5 Mg Tab 7.5 MG PO HS Mental Health Days 15 Ref 1 TAB (This prescription has been renewed ) Omeprazole (Omeprazole) 20 Mg Tab 20 MG PO DAILY #30 Ref 0 TAB Pregabalin (Lyrica) 150 Mg Cap 150 MG PO TID Pain Management #60 Ref 0 CAP Discontinued Medications: Citalopram Hydrobromide (Citalopram HBr) 20 Mg/10 Ml Solution 10 PO DAILY Depression Control Discharge Time <= 30 minutes Discharge/Advance Care Plan Health Problems: (1) Dementia of Alzheimer's type with behavioral disturbance Goals to promote your health * To prevent worsening of your condition and complications * To maintain your health at the optimal level Directions to meet your goals Take your medications as prescribed Follow your dietary instruction Follow activity as directed Keep your appointments as scheduled Take your immunizations and boosters as scheduled If your symptoms worsen call your PCP, if no PCP go to Urgent Care Center or Emergency Room For 24 questions related to your inpatient stay or results of tests pending at discharge, please contact Dr. Mario Alberto Almanza at Smoking is Dangerous to Your Health. Avoid second hand smoking Problem Qualifiers (1) Dementia of Alzheimer's type with behavioral disturbance: Qualified Code: G30.8 - Alzheimer's dementia with behavioral disturbance, unspecified timing of dementia onset Mario Alberto Almanza MD Dec 28, 2016 11:26
== END 2016-12-28 13:35 | DRG 57 ==
LOC: NEPE 17:16 → NEDA 12-15 10:55 → H250 12-15 13:20
PROVIDERS: ADMIT Psychiatry & Neurology Psychiatry; ATTEND Psychiatry & Neurology Psychiatry
DX: G30.9 Alzheimer's disease, unspecified (principal); F02.81 Dementia in other diseases classified elsewhere, unspecified severity, with behavioral disturbance; E11.9 Type 2 diabetes mellitus without complications; Z89.511 Acquired absence of right leg below knee; I10 Essential (primary) hypertension; Z79.84 Long term (current) use of oral hypoglycemic drugs; E78.5 Hyperlipidemia, unspecified; M10.9 Gout, unspecified
CPT/HCPCS: 80048; 80053; 80061; 80307; 81001; 83036; 84443; 85025; 93005; 99285

== ENCOUNTER 2017-05-01 22:36 | Inpatient (IN) | payer MEDICARE, OTHER ==
[~2017-05-01 22:36] MED LIST: ALLO300T2 PO; ASPI-110 PO; CARV12.52 PO; CHOL1TAB42 PO; CYAN100025 PO; DEPA125T PO; HALO0.5T PO; LYRI150C PO; METFPOW PO; MIRT1TAB PO; OMEP20TA PO; [UNRECOGNIZED DRUG - CODE] PO
[2017-05-01] MEDS ORDERED: SODIUM CHLORIDE 0.9% FLUSH 10 ML FLUSH IVF PRN (22:45)
[2017-05-01 22:49] VITALS: BP 146/85; PULSE 99; RESP 18; TEMP 97.4; O2SAT 4; O2SAT 99
[2017-05-01] MEDS ORDERED: SODIUM CHLOR 0.9% 250 ML INJ 250 ML IV ONE (23:00)
[2017-05-01 23:08] VITALS: O2SAT 98
[2017-05-01] MEDS: RESP: ALBUTEROL 2.5 MG/IPRATROPIUM 0.5 MG NEB (SCH) INH (23:14)
[2017-05-01 23:15] LABS: AUTOMATED NEUTROPHIL # 12.5 TH/MM3 (1.8-7.7); BASOPHIL # 0.2 TH/MM3 (0-0.2); EOSINOPHIL # 0.2 TH/MM3 (0-0.4); EOSINOPHIL % 1.1 % (0.0-4.0); HEMATOCRIT 41.2 % (39.0-51.0); HEMO FLAGS AUTO DIFF; LYMPH % 16.4 % (9.0-44.0); LYMPHOCYTE # 2.7 TH/MM3 (1.0-4.8); MEAN CELL VOLUME 87.9 FL (80.0-100.0); MEAN CORPUSCULAR HEMOGLOBIN 29.2 PG (27.0-34.0); MEAN CORPUSCULAR HGB CONC 33.2 % (32.0-36.0); MONO % 5.9 % (0.0-8.0); NEUT % 75.6 % (16.0-70.0); PLATELET COUNT 177 TH/MM3 (150-450); RED BLOOD COUNT 4.69 MIL/MM3 (4.50-5.90); RED CELL DISTRIBUTION WIDTH 14.6 % (11.6-17.2); WHITE BLOOD COUNT 16.6 TH/MM3 (4.0-11.0)
--- NOTE | 2017-05-01 23:16 | PD ---
HPI Chief Complaint: Respiratory Distress Time Seen by Provider: 22:39 Travel History International Travel<30 days: No Contact w/Intl Traveler<30days: No Traveled to known affect area: No History of Present Illness HPI The patient is a 77 year old male who presents to the [facility] emergency department with a history of reported vomiting earlier today and then shortness of breath that developed subsequent to this. The patient is a resident at [facility]. Ambulance services were called out and the patient was noted to be in the shower on a nonrebreather mask with O2 saturations of 85%. The fpc is unsure exactly when the patient vomited. The patient reports that he did vomit, however the patient can't recall exactly how many times. The patient does have a baseline history of dementia. On arrival the patient is noted to have upper airway congestion with difficulty speaking due to mucus in his throat. Prior to arrival ambulance services place the patient on BiPAP and his O2 saturation came up to 96%. The patient's blood pressure prior to arrival was noted to be 100/50. The patient's blood sugar was 158. The patient on arrival denies having any pain. The patient's history otherwise and review of systems is limited related to his baseline level of dementia. [facility] Past Medical History Narrative Medical The patient's past medical history is significant for diabetes mellitus, hypertension, history of gout, history of a right below the knee", anxiety disorder, depression, acid reflux with esophagitis, vitamin D deficiency, hyperlipidemia, restlessness with agitation, vitamin D deficiency, dementia. Cancer: No Cardiovascular Problems: Yes (Massive Heart Attack) Diabetes: Yes (Foot amputated ) Patient Takes Glucophage: No Diminished Hearing: Yes Headaches: No Psychiatric: Yes (Dementia started 4 years ago) Seizures: No Past Surgical History Narrative Surgical The patient's past surgical history is significant for a right below the knee amputation, left shoulder surgery. Social History Alcohol Use: No Tobacco Use: No Substance Use: No Allergies-Medications (Allergen,Severity, Reaction): Coded Allergies: No Known Allergies (Unverified , 12/14/16) Reported Meds & Prescriptions Reported Meds & Active Scripts Active Haloperidol 0.5 Mg Tab 0.5 Mg PO BID 15 Days Razadyne ER (Galantamine Hydrobromide) 24 Mg Caper 24 Mg PO DAILY 15 Days Mirtazapine 7.5 Mg Tab 7.5 Mg PO HS 15 Days Reported Lyrica (Pregabalin) 150 Mg Cap 150 Mg PO TID Vitamin D-3 (Cholecalciferol) 2,000 Unit Tab 2,000 PO DAILY B-12 (Cyanocobalamin) 1,000 Mcg Subl 1,000 Mcg PO DAILY Allopurinol 300 Mg Tab 300 Mg PO DAILY Depakote DR (Divalproex Sodium) 125 Mg Tabdr 125 Mg PO BID Carvedilol 12.5 Mg Tab 12.5 Mg PO BID Omeprazole 20 Mg Tab 20 Mg PO DAILY Metformin HCl (Metformin HCl (Bulk)) 1 Pow Pow 500 Mg PO DAILY Aspirin 81 (Aspirin) 81 Mg Tabdr 81 Mg PO DAILY Review of Systems ROS Limitations: Poor Historian Except as stated in HPI: all other systems reviewed are Neg General / Constitutional: No: Fever Eyes: No: Visual changes HENT: Positive: Congestion, No: Headaches Cardiovascular: Positive: Dyspnea on exertion, No: Chest Pain or Discomfort Respiratory: Positive: Cough, Shortness of Breath Gastrointestinal: Positive: Nausea, Vomiting, No: Diarrhea, Abdominal Pain Genitourinary: No: Dysuria Musculoskeletal: No: Pain Skin: No Rash Neurologic: No: Weakness Psychiatric: No: Depression Endocrine: No: Polydipsia Hematologic/Lymphatic: No: Easy Bruising Physical Exam Narrative General: The patient is a well-developed thin appearing male in no acute distress. The patient is noted to have difficulty speaking related to upper airway congestion. Head and Neck exam: Head is normocephalic atraumatic. Eyes: EOMI, pupils are equal round and reactive to light. Nose: Midline septum with pink mucous membranes Mouth: Dentition unremarkable. Moist mucus membranes. Posterior oropharynx is not erythematous. No tonsillar hypertrophy. Uvula midline. Airway patent. Neck: No palpable lymphadenopathy. No nuchal rigidity. No thyromegaly. Cardiovascular: Sinus tachycardia in the 90s to low 100s without murmurs, gallops, or rubs. No pulse deficit to the extremities and simultaneous auscultation and palpation of his radial artery. Lungs: The patient has tachypnea on exam, the patient has expiratory wheezes noted. The patient has scattered rhonchi noted with upper airway transmission. No crackles are audible. No paroxysmal abdominal breathing. No tripoding. Abdomen: Soft, without tenderness to palpation in all 4 quadrants of the abdomen. No guarding, rebound, or rigidity. Normal bowel sounds are audible. No tenderness on palpation of McBurney's point. Negative Barrera sign. Extremities: No clubbing, cyanosis, or edema. 2+ pulses in all 4 extremities. No calf tenderness on palpation on the left. The patient has a right [id number] amputation. Back: No spinous process tenderness to palpation. No costovertebral angle tenderness to palpation. Neurologic Exam: Cranial nerves 2-12 were intact on exam. Strength is 4/5 in all 4 extremities. No sensory deficits noted. Skin Exam: No rash noted. Intact skin that is warm and dry. Data Data Last Documented VS Vital Signs Date Time Temp Pulse Resp B/P (MAP) Pulse Ox O2 Delivery O2 Flow Rate FiO2 05/02/17 00:42 90 14 146/85 (105) 100 Nasal Cannula 3.00 05/01/17 22:49 97.4 Orders Orders Electrocardiogram (05/01/17 22:43) Complete Blood Count With Diff (05/01/17:43) Troponin I (05/01/17 22:43) B-Type Natriuretic Peptide (05/01/17 22:43) Prothrombin Time / Inr (Pt) (05/01/17:43) Act Partial Throm Time (Ptt) (05/01/17 22:43) Blood Culture (05/01/17:43) Lipase (05/01/17 22:43) Urinalysis - C+S If Indicated (05/01/17 22:43) Cath For Specimen (05/01/17:43) Magnesium (Mg) (05/01/17 22:43) Chest, Single Ap (05/01/17 22:43) Iv Access Insert/Monitor (05/01/17 22:43) Ecg Monitoring (05/01/17 22:43) Oxygen Administration (05/01/17 22:43) Oximetry (05/01/17 22:43) Lactic Acid Sepsis Protocol (05/01/17 22:43) Sodium Chloride 0.9% Flush (Ns Flush) (05/01/17 22:45) Albuterol-Ipratropium Neb (Duoneb Neb) (05/01/17 22:45) Sodium Chlor 0.9% 250 Ml Inj (Ns 250 Ml (05/01/17 23:00) Comprehensive Metabolic Panel (05/01/17 22:55) Clindamycin Inj (Cleocin Inj) (05/02/17 01:15) Admit Order (Ed Use Only) (05/02/17 01:04) Labs Laboratory Tests Test 05/01/17 22:55 05/01/17 23:11 White Blood Count 16.6 TH/MM3 Red Blood Count 4.69 MIL/MM3 Hemoglobin 13.7 GM/DL Hematocrit 41.2 % Mean Corpuscular Volume 87.9 FL Mean Corpuscular Hemoglobin 29.2 PG Mean Corpuscular Hemoglobin Concent 33.2 % Red Cell Distribution Width 14.6 % Platelet Count 177 TH/MM3 Mean Platelet Volume 9.3 FL Neutrophils (%) (Auto) 75.6 % Lymphocytes (%) (Auto) 16.4 % Monocytes (%) (Auto) 5.9 % Eosinophils (%) (Auto) 1.1 % Basophils (%) (Auto) 1.0 % Neutrophils # (Auto) 12.5 TH/MM3 Lymphocytes # (Auto) 2.7 TH/MM3 Monocytes # (Auto) 1.0 TH/MM3 Eosinophils # (Auto) 0.2 TH/MM3 Basophils # (Auto) 0.2 TH/MM3 CBC Comment AUTO DIFF Differential Total Cells Counted 100 Neutrophils % (Manual) 67 % Band Neutrophils % 6 % Lymphocytes % 18 % Monocytes % 8 % Eosinophils % 1 % Neutrophils # (Manual) 12.1 TH/MM3 Differential Comment FINAL DIFF MANUAL Atypical Lymphocytes % Platelet Estimate NORMAL Platelet Morphology Comment NORMAL Red Cell Morphology Comment NORMAL Prothrombin Time 10.9 SEC Prothromb Time International Ratio 1.0 RATIO Activated Partial Thromboplast Time 28.7 SEC Blood Urea Nitrogen 17 MG/DL Creatinine 1.02 MG/DL Random Glucose 129 MG/DL Total Protein 7.6 GM/DL Albumin 3.4 GM/DL Calcium Level 9.5 MG/DL Magnesium Level 2.1 MG/DL Alkaline Phosphatase 94 U/L Aspartate Amino Transf (AST/SGOT) 9 U/L Alanine Aminotransferase (ALT/SGPT) 12 U/L Total Bilirubin 0.5 MG/DL Sodium Level 141 MEQ/L Potassium Level 3.9 MEQ/L Chloride Level 104 MEQ/L Carbon Dioxide Level 29.8 MEQ/L Anion Gap 7 MEQ/L Estimat Glomerular Filtration Rate 71 ML/MIN Lactic Acid Level 1.5 mmol/L Troponin I LESS THAN 0.02 NG/ML B-Type Natriuretic Peptide 29 PG/ML Lipase 87 U/L Urine Color YELLOW Urine Turbidity CLEAR Urine pH 6.5 Urine Specific [place] 1.022 Urine Protein TRACE mg/dL Urine Glucose (UA) NEG mg/dL Urine Ketones TRACE mg/dL Urine Occult Blood NEG Urine Nitrite NEG Urine Bilirubin NEG Urine Urobilinogen 2.0 MG/DL Urine Leukocyte Esterase NEG Urine RBC LESS THAN 1 /hpf Urine WBC 1 /hpf Urine Amorphous Sediment RARE Microscopic Urinalysis Comment CULT NOT INDICATED MDM Medical Decision Making Medical Screen Exam Complete: Yes Emergency Medical Condition: Yes Medical Record Reviewed: Yes Interpretation(s) Last Impressions Chest X-Ray 05/01/17 2243 Signed Impressions: Service Date/Time: Monday, May 01, 2017 22:49 - CONCLUSION: No acute disease. Mario Bonilla MD Differential Diagnosis Vomiting with aspiration, versus pneumonia, versus COPD exacerbation, versus new -onset congestive heart failure, versus acute coronary syndrome Narrative Course During the course of the patients emergency department visit, the patients history, examination, and differential diagnosis were reviewed with the patient. The patient had IV access obtained and blood work sent for analysis. The patient was placed on a market manager with oximetry and blood pressure monitoring. The patient had NT suction done by respiratory therapy. The patient was placed on 2 L nasal cannula and is saturating 94-96%. The patient' s fpc record and electronic medical record was reviewed. The patient is DNR. A DNR is available at the patient's bedside from the patient's fpc. The patient had an ECG done on arrival that shows a sinus tachycardia heart rate of 107, right bundle branch block, no acute ST segment elevation. The patient has a wavy baseline on examination of the ECG which could be affecting interpretation. The patient was initially provided normal saline at 250 mL bolus 1. The patient was given DuoNeb 2. The patient will be given Solu-Medrol 125 mg IV. The patients laboratory studies were reviewed and remarkable for a white count of 16.6, hemoglobin 13.7, platelets 177 with 75.6 neutrophils. CMP is remarkable for a glucose of 129, AST 9, troponin I less than 0.02, BNP is 29, lipase 87, lactic acid 1.5, PT PTT within normal limits, urinalysis shows trace ketones. Radiology studies were reviewed and remarkable for a chest x-ray that showed no acute abnormality, however given the patient's suspicion of aspiration the patient was given clindamycin 600 mg IV. The patients results were discussed with the patient, including the plan of care. I explained that further testing and/ or monitoring is indicated based on the patients history, examination, and/ or laboratory findings. Therefore, I recommended admission for additional evaluation. The patient expressed understanding and was agreeable with this plan. The patient was admitted to the hospital in guarded condition and [facility] Physician Communication Physician Communication The patient's case was discussed with Dr. Bello who did agree to admit the patient for further evaluation and treatment at this time Diagnosis Primary Impression: Aspiration pneumonia Qualified Codes: J69.0 - Pneumonitis due to inhalation of food and vomit Additional Impression: Hypoxemia Admitting Information Admitting Physician Requests: Sarah Fry MD May 01, 2017 23:16
[2017-05-01 23:24] LABS: APTT (PATIENT) 28.7 SEC (24.3-30.1); PROTHROMBIN TIME - PATIENT 10.9 SEC (9.8-11.6)
[2017-05-01 23:28] LABS: BLOOD, URINE NEG (NEG); COMMENT (UR) CULT NOT INDICATED; CULTURE IF INDICATED CULT NOT INDICATED; GLUCOSE,URINE NEG (NEG); KETONE, URINE TRACE mg/dL (NEG); NITRITE,URINE NEG (NEG); PH, URINE 6.5 (5.0-8.5); URINE COLOR YELLOW (YELLW/STRAW)
[2017-05-01 23:42] LABS: BANDS 6 % (0-6); EOSINOPHILS 1 % (0-4); MAGNESIUM 2.1 MG/DL (1.5-2.5); NEUTROPHIL # MANUAL DIFF 12.1 TH/MM3 (1.8-7.7); POLYS (SEG NEUTROPHILS) 67 % (16-70); WBC DIFF SAMPLE 100
[2017-05-01 23:43] LABS: SCAN/DIFF FINAL DIFF MANUAL
[2017-05-01 23:44] LABS: PLATELET ESTIMATE SMEAR NORMAL (NORMAL); PLATELET MORPHOLOGY NORMAL (NORMAL)
--- NOTE | 2017-05-01 23:59 | RADRPT ---
EXAM DATE/TIME: 05/01/2017 22:49 [place] COMPARISON: No previous studies available for comparison. INDICATIONS : Shortness of breath. MEDICAL HISTORY : Myocardial infarction. Diabetes mellitus type II. SURGICAL HISTORY : Unable to obtain. ENCOUNTER: Initial ACUITY: 1 day PAIN SCORE: Non-responsive. LOCATION: Bilateral chest FINDINGS: A single view of the chest demonstrates the lungs to be symmetrically aerated without evidence of mas s, infiltrate or effusion. The cardiomediastinal contours are unremarkable. Osseous structures are intact. CONCLUSION: No acute disease. Mario Bonilla MD on May 01, 2017 at 23:57 Board Certified Radiologist. This report was verified electronically.
[2017-05-02] VITALS (11 sets, daily range): BP systolic 121–152; BP diastolic 61–85; PULSE 83–101; RESP 14–22; TEMP 96.7–99; O2SAT 92–100
[2017-05-02 00:39] LABS: ALT (GPT) 12 U/L (12-78); BLOOD UREA NITROGEN 17 MG/DL (7-18); GLOMERULAR FILTRATION RATE 71 ML/MIN (>89)
[2017-05-02 00:40] LABS: ALKALINE PHOSPHATASE 94 U/L (45-117); TOTAL BILIRUBIN ADULT 0.5 MG/DL (0.2-1.0)
[2017-05-02 00:56] LABS: ANION GAP 7 MEQ/L (5-15); AST (GOT) 9 U/L (15-37); BICARBONATE 29.8 MEQ/L (21.0-32.0); CHLORIDE 104 MEQ/L (98-107); POTASSIUM 3.9 MEQ/L (3.5-5.1); SODIUM (NA) 141 MEQ/L (136-145)
[2017-05-02] MEDS ORDERED: CLINDAMYCIN INJ 600 MG in SODIUM CHLORIDE 0.9% INJ 100 ML IV ONE (01:15)
[2017-05-02] MEDS ORDERED: NALOXONE HCL 0.4 MG/ML AMP IV PUSH PRN (01:15)
[2017-05-02] MEDS ORDERED: SODIUM CHLORIDE 0.9% FLUSH 10 ML FLUSH IV FLUSH PRN (01:15)
--- NOTE | 2017-05-02 02:44 | HHI.HP ---
HPI Service [facility] Primary Care Physician Unknown Admission Diagnosis Aspiration, Shortness of breath with hypoxia on RA Diagnoses: Chief Complaint: n/v and sob Travel History International Travel<30 Days: No Contact w/Intl Traveler <30 Da: No Traveled to Known Affected Are: No History of Present Illness Written by SYEDA eMndez acting as scribe for [Eugenia] on 05/02/17 at 02: 44. 77 y/o male with a history of Dementia, DM, HTN, gout, anxiety, depression, gerd , and HLD presented to the ED by [facility] after being found at the [facility] in respiratory distress. [facility] reported finding the patient with an o2 sat 85% on a non rebreather, RN had stated patient vomited prior to desaturation. Upon arrival to the ED [facility] placed patient on bipap, after arrival he was NT suctioned and was able to be placed on 2 L NC. Patient is lethargic, so ros is difficult to assess. He did respond yes to nausea. No family is at the bedside for questioning. Review of Systems ROS Limitations: Other (lethargic, sleepy) Past Family Social History Past Medical History Dementia DM HTN gout anxiety depression gerd HLD Past Surgical History RBKA Left shoulder surgery Reported Medications Reported Meds & Active Scripts Active Haloperidol 0.5 Mg Tab 0.5 Mg PO BID 15 Days Razadyne ER (Galantamine Hydrobromide) 24 Mg Caper 24 Mg PO DAILY 15 Days Mirtazapine 7.5 Mg Tab 7.5 Mg PO HS 15 Days Reported Lyrica (Pregabalin) 150 Mg Cap 150 Mg PO TID Vitamin D-3 (Cholecalciferol) 2,000 Unit Tab 2,000 PO DAILY B-12 (Cyanocobalamin) 1,000 Mcg Subl 1,000 Mcg PO DAILY Allopurinol 300 Mg Tab 300 Mg PO DAILY Depakote DR (Divalproex Sodium) 125 Mg Tabdr 125 Mg PO BID Carvedilol 12.5 Mg Tab 12.5 Mg PO BID Omeprazole 20 Mg Tab 20 Mg PO DAILY Metformin HCl (Metformin HCl (Bulk)) 1 Pow Pow 500 Mg PO DAILY Aspirin 81 (Aspirin) 81 Mg Tabdr 81 Mg PO DAILY Allergies: Coded Allergies: No Known Allergies (Unverified , 12/14/16) Active Ordered Medications Current Medications Medications (Trade) Dose Ordered Sig/Kenzie Route Start Time Stop Time Status Last Admin (NS Flush) 2 ml UNSCH PRN IV FLUSH 05/02/17 01:15 (NS Flush) 2 ml BID IV FLUSH 05/02/17 09:00 (Narcan Inj) 0.4 mg UNSCH PRN IV PUSH 05/02/17 01:15 Clindamycin Phosphate 600 mg/ Sodium Chloride 104 ml @ 208 mls/hr Q8H IV 05/02/17 09:00 (Lactinex) 1 tab TID PO 05/02/17 09:00 Family History Per EMR: Father had cancer Social History Per EMR patient does not use tobacco, alcohol or illicit drug use. Patient is a resident of [facility] Physical Exam Vital Signs Vital Signs Date Time Temp Pulse Resp B/P (MAP) Pulse Ox O2 Delivery O2 Flow Rate FiO2 05/02/17 02:31 98.6 95 20 121/62 (81) 100 05/02/17 02:10 05/02/17 00:42 90 14 146/85 (105) 100 Nasal Cannula 3.00 05/01/17 23:08 98 Nasal Cannula 4.00 05/01/17 22:57 91 Nasal Cannula 4.00 05/01/17 22:56 91 Nasal Cannula 4.00 05/01/17 22:49 97.4 99 18 146/85 (105) 99 Physical Exam GENERAL: This is a well-nourished, patient who is lethargic. SKIN: No rashes, ecchymoses or lesions. Cool and dry. HEAD: Atraumatic. Normocephalic. EYES: Pupils equal round and reactive. Extraocular motions intact. ENT: Nose without bleeding, purulent drainage or septal hematoma. Airway patent. Thick oral secretions noted. Erythema rash around mouth NECK: Trachea midline. No JVD or lymphadenopathy. CARDIOVASCULAR: Regular rate and rhythm with a systolic murmer. RESPIRATORY: Diminished Breath sounds equal bilaterally. No wheezes, rales, or rhonchi. GASTROINTESTINAL: Abdomen soft, non-tender, nondistended. MUSCULOSKELETAL: Extremities without clubbing, cyanosis, or edema. No calf tenderness. NEUROLOGICAL: Lethargic. Motor and sensory grossly within normal limits. Laboratory Laboratory Tests Test 05/01/17 22:55 05/01/17 23:11 White Blood Count 16.6 Red Blood Count 4.69 Hemoglobin 13.7 Hematocrit 41.2 Mean Corpuscular Volume 87.9 Mean Corpuscular Hemoglobin 29.2 Mean Corpuscular Hemoglobin Concent 33.2 Red Cell Distribution Width 14.6 Platelet Count 177 Mean Platelet Volume 9.3 Neutrophils (%) (Auto) 75.6 Lymphocytes (%) (Auto) 16.4 Monocytes (%) (Auto) 5.9 Eosinophils (%) (Auto) 1.1 Basophils (%) (Auto) 1.0 Neutrophils # (Auto) 12.5 Lymphocytes # (Auto) 2.7 Monocytes # (Auto) 1.0 Eosinophils # (Auto) 0.2 Basophils # (Auto) 0.2 CBC Comment AUTO DIFF Differential Total Cells Counted 100 Neutrophils % (Manual) 67 Band Neutrophils % 6 Lymphocytes % 18 Monocytes % 8 Eosinophils % 1 Neutrophils # (Manual) 12.1 Differential Comment FINAL DIFF MANUAL Atypical Lymphocytes Platelet Estimate NORMAL Platelet Morphology Comment NORMAL Red Cell Morphology Comment NORMAL Prothrombin Time 10.9 Prothromb Time International Ratio 1.0 Activated Partial Thromboplast Time 28.7 Blood Urea Nitrogen 17 Creatinine 1.02 Random Glucose 129 Total Protein 7.6 Albumin 3.4 Calcium Level 9.5 Magnesium Level 2.1 Alkaline Phosphatase 94 Aspartate Amino Transf (AST/SGOT) 9 Alanine Aminotransferase (ALT/SGPT) 12 Total Bilirubin 0.5 Sodium Level 141 Potassium Level 3.9 Chloride Level 104 Carbon Dioxide Level 29.8 Anion Gap 7 Estimat Glomerular Filtration Rate 71 Lactic Acid Level 1.5 Troponin I LESS THAN 0.02 B-Type Natriuretic Peptide 29 Lipase 87 Urine Color YELLOW Urine Turbidity CLEAR Urine pH 6.5 Urine Specific [place] 1.022 Urine Protein TRACE Urine Glucose (UA) NEG Urine Ketones TRACE Urine Occult Blood NEG Urine Nitrite NEG Urine Bilirubin NEG Urine Urobilinogen 2.0 Urine Leukocyte Esterase NEG Urine RBC LESS THAN 1 Urine WBC 1 Urine Amorphous Sediment RARE Microscopic Urinalysis Comment CULT NOT INDICATED Date/Time Source Procedure Growth Status 05/01/17 22:55 Blood Peripheral Aerobic Blood Culture Pending Received 05/01/17 22:55 Blood Peripheral Anaerobic Blood Culture Pending Received Result Diagram: 05/01/17225405/01/172254 Imaging Last Impressions Chest X-Ray 05/01/17 2243 Signed Impressions: Service Date/Time: Monday, May 01, 2017 22:49 - CONCLUSION: No acute disease. MD Efraín Flanagan VTE Risk Assessment Efraín VTE Risk Assessment: Mod/High Risk (score >= 2) Wilbertrinlouis Risk Assessment Model Point Value = 1 Point Value = 2 Point Value = 3 Point Value = 5 Age 41-60 Minor surgery BMI > 25 kg/m2 Swollen legs Varicose veins or History of unexplained or recurrent spontaneous Oral contraceptives or hormone replacement Sepsis (< 1 month) Serious lung disease, including pneumonia (< 1 month) Abnormal pulmonary function Acute myocardial infarction Congestive heart failure (< 1 month) History of inflammatory bowel disease Medical patient at bed rest Age 61-74 Arthroscopic surgery Major open surgery (> 45 min) Laparoscopic surgery (> 45 min) Malignancy Confined to bed (> 72 hours) Immobilizing plaster cast Central venous access Age >= 75 History of VTE Family history of VTE Factor V Leiden Prothrombin [id number] Lupus anticoagulant Anticardiolipin antibodies Elevated serum homocysteine Heparin-induced thrombocytopenia Other congenital or acquired thrombophilia Stroke (< 1 month) Elective arthroplasty Hip, pelvis, or leg fracture Acute spinal cord injury (< 1 month) Prophylaxis Regimen Total Risk Factor Score Risk Level Prophylaxis Regimen 0-1 Low Early ambulation 2 Moderate Order ONE of the following: *Sequential Compression Device (SCD) *Heparin 5000 units SQ BID 3-4 Higher Order ONE of the following medications: *Heparin 5000 units SQ TID *Enoxaparin/Lovenox 40 mg SQ daily (WT < 150 kg, CrCl > 30 mL/min) *Enoxaparin/Lovenox 30 mg SQ daily (WT < 150 kg, CrCl > 10-29 mL/min) *Enoxaparin/Lovenox 30 mg SQ BID (WT < 150 kg, CrCl > 30 mL/min) AND/OR *Sequential Compression Device (SCD) 5 or more Highest Order ONE of the following medications: *Heparin 5000 units SQ TID (Preferred with Epidurals) *Enoxaparin/Lovenox 40 mg SQ daily (WT < 150 kg, CrCl > 30 mL/min) *Enoxaparin/Lovenox 30 mg SQ daily (WT < 150 kg, CrCl > 10-29 mL/min) *Enoxaparin/Lovenox 30 mg SQ BID (WT < 150 kg, CrCl > 30 mL/min) AND *Sequential Compression Device (SCD) Assessment and Plan Problem List: (1) Aspiration pneumonia ICD Code: J69.0 - Pneumonitis due to inhalation of food and vomit (2) Diabetes ICD Code: E11.9 - Type 2 diabetes mellitus without complications Status: Acute Assessment and Plan 77 y/o male with a history of Dementia, DM, HTN, gout, anxiety, depression, GERD , and HLD presented to the ED by [facility] after being found at the [facility] in respiratory distress. Aspiration pneumonia with leukocytosis and hypoxia, WBC 16.6 s/p vomiting, was 85% on non rebreather prior to arrival Chest x ray reviewed and shows no acute disease -Clindamycin IV -Continuous pulse ox -Suction Q2H -NPO, swallow eval by Speech therapy -O2 2L NC, titrate as needed -Acapella Q4h -IVF D5 1/2 NS for hydration DM, chronic -ACCU checks AC/HS -SSI when patient is no longer NPO HTN, chronic, currently controlled: PRNs if needed, monitor vitals, order home meds when med rec is updated DVT prophylaxis: SCDs Code Status: DNR Code Status DNR Discussed Condition With Patient and RN Physician Certification 2 Midnight Certification Type: Admission for Inpatient Services Order for Inpatient Services The services are ordered in accordance with Medicare regulations or non- Medicare payer requirements, as applicable. In the case of services not specified as inpatient-only, they are appropriately provided as inpatient services in accordance with the 2-midnight benchmark. Estimated LOS (days): 2 days is the estimated time the patient will need to remain in the hospital, assuming treatment plan goals are met and no additional complications. Post-Hospital Plan: [facility] Ankita Harper May 02, 2017 02:44
[2017-05-02] MEDS ORDERED: DEXTROSE 50% IN WATER 50 ML VIAL(D50) IV PUSH PRN (03:30)
[2017-05-02] MEDS ORDERED: GLUCAGON 1 MG/ML VIAL OTHER PRN (03:30)
[2017-05-02] MEDS: DEXT 5%-NACL 0.45% 1000 ML INJ 1,000 ML IV SCH (03:41)
[2017-05-02] MEDS ORDERED: DEXTROSE 5%-NACL 0.225% INJ 1,000 ML IV SCH (03:45)
[2017-05-02] MEDS: SODIUM CHLORIDE 0.9% FLUSH 10 ML FLUSH IV FLUSH SCH ×2 (09:00→21:48)
[2017-05-02] MEDS: LACTOBACILLUS ACIDOPHILUS TAB PO SCH ×3 (09:00→17:37)
[2017-05-02] MEDS: CLINDAMYCIN INJ 600 MG in SODIUM CHLORIDE 0.9% INJ 100 ML IV SCH ×2 (09:42→16:30)
--- NOTE | 2017-05-02 15:07 | EKG ---
Date Performed: 05/01/2017 Time Performed: 23:20:14 PTAGE: 77 years EKG: SINUS TACHYCARDIA BASELINE ARTIFACT POSSIBLE LEFT ATRIAL ENLARGEMENT RIGHT BUNDLE BRANCH BL OCK ANTERIOR MYOCARDIAL INFARCTION ABNORMAL ECG PREVIOUS TRACING : 12/16/2016 10.04 Compared to prior tracing no significant change DOCTOR: Raffi Marino Interpretating Date/Time 05/02/2017 15:06:50
[2017-05-03] VITALS (9 sets, daily range): BP systolic 115–129; BP diastolic 59–73; PULSE 79–95; RESP 18–22; TEMP 96.9–100.2; O2SAT 95–98
[2017-05-03] MEDS: CLINDAMYCIN INJ 600 MG in SODIUM CHLORIDE 0.9% INJ 100 ML IV SCH ×3 (00:49→17:52)
[2017-05-03] MEDS: DEXT 5%-NACL 0.45% 1000 ML INJ 1,000 ML IV SCH (00:52)
[2017-05-03 07:22] LABS: AUTOMATED NEUTROPHIL # 12.3 TH/MM3 (1.8-7.7); BASOPHIL # 0.1 TH/MM3 (0-0.2); BASOPHIL % 0.4 % (0.0-2.0); EOSINOPHIL % 0.2 % (0.0-4.0); HEMATOCRIT 35.3 % (39.0-51.0); HEMO FLAGS DIFF FINAL; LYMPH % 10.2 % (9.0-44.0); LYMPHOCYTE # 1.5 TH/MM3 (1.0-4.8); MEAN CORPUSCULAR HEMOGLOBIN 29.5 PG (27.0-34.0); MEAN CORPUSCULAR HGB CONC 33.5 % (32.0-36.0); MONO % 7.5 % (0.0-8.0); NEUT % 81.7 % (16.0-70.0); PLATELET COUNT 127 TH/MM3 (150-450); RED BLOOD COUNT 4.01 MIL/MM3 (4.50-5.90); RED CELL DISTRIBUTION WIDTH 14.5 % (11.6-17.2)
[2017-05-03 07:44] LABS: BICARBONATE 25.9 MEQ/L (21.0-32.0); POTASSIUM 3.5 MEQ/L (3.5-5.1)
[2017-05-03] MEDS: LACTOBACILLUS ACIDOPHILUS TAB PO SCH ×3 (09:00→17:53)
[2017-05-03] MEDS: SODIUM CHLORIDE 0.9% FLUSH 10 ML FLUSH IV FLUSH SCH ×2 (09:00→21:00)
[2017-05-03] MEDS ORDERED: VANCOMYCIN INJ 1,000 MG in SODIUM CHLOR 0.9% 250 ML INJ 250 ML IV SCH (12:30)
[2017-05-03] MEDS ORDERED: Vancomycin Consult Pharmacy 1 EA OTHER SCH (12:30)
--- NOTE | 2017-05-03 12:39 | HHI.PR ---
Subjective Remarks resting in bed no cp , no fever Objective Vitals Vital Signs Date Time Temp Pulse Resp B/P (MAP) Pulse Ox O2 Delivery O2 Flow Rate FiO2 05/03/17 08:00 97.8 82 19 129/68 (88) 95 05/03/17 04:00 100.2 88 22 127/61 (83) 95 05/03/17 01:12 96.9 95 20 115/68 (84) 95 05/03/17 00:00 96.9 95 20 115/68 (84) 95 05/02/17 21:43 96 Nasal Cannula 3.00 05/02/17 20:00 87 05/02/17 20:00 97.0 95 22 131/61 (84) 97 05/02/17 16:00 96.7 101 19 135/63 (87) 95 I/O 05/02/17 05/02/17 05/02/17 05/03/17 05/03/17 05/03/17 07:00 15:00 23:00 07:00 15:00 23:00 Intake Total 354 ml 0 ml Balance 354 ml 0 ml Intake Oral 0 ml IV Total 354 ml Result Diagram: 05/03/1736 05/03/1736 Objective Remarks GENERAL: This isfrail demnted elderly well-developed patient, in no apparent distress. CARDIOVASCULAR: Regular rate and rhythm without murmurs, gallops, or rubs. RESPIRATORY: dimished Breath sounds bilaterally. GASTROINTESTINAL: Abdomen soft, non-tender, nondistended. Normal active bowel sounds MUSCULOSKELETAL: Extremities without clubbing, cyanosis, or edema. NEURO:awake , Alert Moves all ext x4 A/P Problem List: (1) Aspiration pneumonia ICD Code: J69.0 - Pneumonitis due to inhalation of food and vomit (2) Diabetes ICD Code: E11.9 - Type 2 diabetes mellitus without complications Status: Acute Assessment and Plan 77 y/o male with a history of Dementia, DM, HTN, gout, anxiety, depression, GERD , and HLD presented to the ED by EVAC after being found at the [facility] in respiratory distress. Aspiration pneumonia with leukocytosis and hypoxia, WBC 16.6 s/p vomiting, was 85% on non rebreather prior to arrival Chest x ray reviewed and shows no acute disease -Clindamycin IV -Continuous pulse ox -Suction Q2H -NPO, swallow eval by Speech therapy -O2 2L NC, titrate as needed -Acapella Q4h -IVF D5 1/2 NS for hydration DM, chronic -ACCU checks AC/HS -SSI when patient is no longer NPO HTN, chronic, currently controlled: PRNs if needed, monitor vitals, order home meds when med rec is updated DVT prophylaxis: SCDs Code Status: DNR Renae Garg MD May 03, 2017 12:39
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
[2017-05-03] MEDS: VANCOMYCIN 1,000 MG/NS 250 ML IV SCH ×2 (15:50)
[2017-05-04] VITALS: BP 102/55; PULSE 76; RESP 18; TEMP 98.4; O2SAT 95
[2017-05-04] MEDS: CLINDAMYCIN INJ 600 MG in SODIUM CHLORIDE 0.9% INJ 100 ML IV SCH ×2 (00:56→11:52)
[2017-05-04] MEDS: DEXT 5%-NACL 0.45% 1000 ML INJ 1,000 ML IV SCH (03:23)
[2017-05-04 04:00] VITALS: BP 113/59; PULSE 71; RESP 18; TEMP 98.8; O2SAT 92
[2017-05-04 07:44] VITALS: O2SAT 95
[2017-05-04 08:00] VITALS: BP 140/77; PULSE 75; RESP 17; TEMP 95.2; O2SAT 95
[2017-05-04] MEDS: SODIUM CHLORIDE 0.9% FLUSH 10 ML FLUSH IV FLUSH SCH (09:00)
[2017-05-04] MEDS: LACTOBACILLUS ACIDOPHILUS TAB PO SCH ×2 (09:46→13:00)
[2017-05-04] MEDS: VANCOMYCIN 1,000 MG/NS 250 ML IV SCH ×2 (09:58)
[2017-05-04] MEDS ORDERED: AUGM875T3 PO (10:27)
--- NOTE | 2017-05-04 10:34 | HHI.DS ---
Discharge Summary Admission Date May 02, 2017 at 01:06 Discharge Date: May 04, 2017 Admitting Diagnosis Aspiration, Shortness of breath with hypoxia on RA (1) Aspiration pneumonia ICD Code: J69.0 - Pneumonitis due to inhalation of food and vomit (2) Diabetes ICD Code: E11.9 - Type 2 diabetes mellitus without complications Status: Acute Procedures None Brief History - From Admission HPI from the admitting physician 77 y/o male with a history of Dementia, DM, HTN, gout, anxiety, depression, gerd , and HLD presented to the ED by EVAC after being found at the [facility] in respiratory distress. Evac reported finding the patient with an o2 sat 85% on a non rebreather, RN had stated patient vomited prior to desaturation. Upon arrival to the ED EVAC placed patient on bipap, after arrival he was NT suctioned and was able to be placed on 2 L NC. Patient is lethargic, so ros is difficult to assess. He did respond yes to nausea. No family is at the bedside for questioning. CBC/BMP: 05/03/17 0536 05/03/17 0536 Significant Findings Laboratory Tests Test 05/01/17 22:55 05/01/17 23:11 05/03/17 05:36 White Blood Count 16.6 TH/MM3 (4.0-11.0) 15.0 TH/MM3 (4.0-11.0) Neutrophils (%) (Auto) 75.6 % (16.0-70.0) 81.7 % (16.0-70.0) Neutrophils # (Auto) 12.5 TH/MM3 (1.8-7.7) 12.3 TH/MM3 (1.8-7.7) Monocytes # (Auto) 1.0 TH/MM3 (0-0.9) 1.1 TH/MM3 (0-0.9) Neutrophils # (Manual) 12.1 TH/MM3 (1.8-7.7) Random Glucose 129 MG/DL (74-106) 123 MG/DL (74-106) Aspartate Amino Transf (AST/SGOT) 9 U/L (15-37) Estimat Glomerular Filtration Rate 71 ML/MIN (>89) 85 ML/MIN (>89) Troponin I LESS THAN 0.02 NG/ML Urine Ketones TRACE mg/dL (NEG) Red Blood Count 4.01 MIL/MM3 (4.50-5.90) Hemoglobin 11.8 GM/DL (13.0-17.0) Hematocrit 35.3 % (39.0-51.0) Platelet Count 127 TH/MM3 (150-450) Imaging Last Impressions Chest X-Ray 05/01/17 [id number] Signed Impressions: Service Date/Time: Monday, May 01, 2017 22:49 - CONCLUSION: No acute disease. Mario Bonilla MD PE at Discharge GENERAL: This isfrail demnted elderly well-developed patient, in no apparent distress. CARDIOVASCULAR: Regular rate and rhythm without murmurs, gallops, or rubs. RESPIRATORY: dimished Breath sounds bilaterally. GASTROINTESTINAL: Abdomen soft, non-tender, nondistended. Normal active bowel sounds MUSCULOSKELETAL: Extremities without clubbing, cyanosis, or edema. NEURO:awake , Alert Moves all ext x4 Pt update on day of discharge Patient is awake. He tried to get out of bed this morning and fell. He sustained a superficial laceration of the left forehead. He denies any pain. Oriented to self only. Severe dementia. His declined further aggressive care and requested Hospice. Hospital Course 77 y/o male with a history of Dementia, DM, HTN, gout, anxiety, depression, GERD , and HLD presented to the ED by EVAC after being found at the [facility] in respiratory distress. Apparently the patient had an aspiration event. He was reportedly satting 85% on a nonrebreather prior to arrival to the emergency room. His chest x-ray did not reveal any acute process. He was treated empirically with clindamycin IV for presumed aspiration pneumonia. The patient was quickly weaned off oxygen and was back to his baseline on room air. Speech therapy evaluated the patient and adjusted his diet to pure and honey thick liquids. He did not have any further signs of aspirations or respiratory concerns. Given his age he was discharge on Augmentin for another 5 days as empiric treatment. All of the patient's other chronic medications were continued on discharge. Pt Condition on Discharge: Stable Discharge Disposition: Discharge to SNF Discharge Time: > 30 minutes Discharge Instructions DIET: Follow Instructions for: Heart Healthy Diet Speech Therapy-Diet Recommends: Honey Thickened Liquids, Pureed Activities you can perform: Regular-No Restrictions Follow up Referrals: PCP Follow-up - 1 Week New Medications: Amoxicillin-Clavulanate (Augmentin) 875-125 Mg Tab 1 TAB PO BID for Infection, #10 TAB 0 Refills Continued Medications: Allopurinol (Allopurinol) 300 Mg Tab 300 MG PO DAILY for Gout, #30 TAB [address] (Aspirin 81) 81 Mg Tabdr 81 MG PO DAILY, TAB 0 Refills Carvedilol (Carvedilol) 12.5 Mg Tab 12.5 MG PO BID for Blood Pressure Management, #60 TAB 0 Refills Cholecalciferol (Vitamin D-3) 2,000 Unit Tab 2000 PO DAILY for Nutritional Supplement Cyanocobalamin (B-12) 1,000 Mcg Subl 1000 MCG PO DAILY for Nutritional Supplement, TAB.SL [address] (Depakote DR) 125 Mg Tabdr 125 MG PO BID, #60 TAB 0 Refills Galantamine ER (Razadyne ER) 24 Mg Caper 24 MG PO DAILY for Alzheimer's Dementia for 15 Days, CAP 1 Refill Metformin HCl (Bulk) (Metformin HCl) 1 Pow Pow 500 MG PO DAILY Mirtazapine (Mirtazapine) 7.5 Mg Tab 7.5 MG PO HS for Mental Health for 15 Days, TAB 1 Refill Omeprazole (Omeprazole) 20 Mg Tab 20 MG PO DAILY, #30 TAB 0 Refills Pregabalin (Lyrica) 150 Mg Cap 150 MG PO TID for Pain Management, #60 CAP 0 Refills Discontinued Medications: Haloperidol (Haloperidol) 0.5 Mg Tab 0.5 MG PO BID for Mental Health for 15 Days, TAB 1 Refill Nick Spring MD May 04, 2017 10:34
[2017-05-04 12:00] VITALS: BP 130/76; PULSE 72; RESP 19; TEMP 95.7; O2SAT 100
[2017-05-05] MEDS ORDERED: PHARMACY ORDERED LAB ONE (21:45)
== END 2017-05-04 15:25 | DRG 179 ==
LOC: NEPE 22:36 → NEDA 05-02 01:06 → N07B 05-02 02:25
PROVIDERS: ADMIT Family Medicine; ATTEND Family Medicine
DX: J69.0 Pneumonitis due to inhalation of food and vomit (principal); E11.9 Type 2 diabetes mellitus without complications; G30.9 Alzheimer's disease, unspecified; F02.80 Dementia in other diseases classified elsewhere, unspecified severity, without behavioral disturbance, psychotic disturbance, mood disturbance, and anxiety; I10 Essential (primary) hypertension; M10.9 Gout, unspecified; K21.9 Gastro-esophageal reflux disease without esophagitis; E78.5 Hyperlipidemia, unspecified; F41.9 Anxiety disorder, unspecified; F32.9 Major depressive disorder, single episode, unspecified; Z89.511 Acquired absence of right leg below knee; Z79.84 Long term (current) use of oral hypoglycemic drugs; Z79.82 Long term (current) use of aspirin; Z66 Do not resuscitate; I25.2 Old myocardial infarction; I25.10 Atherosclerotic heart disease of native coronary artery without angina pectoris
CPT/HCPCS: 71010; 80048; 80053; 81001; 82948; 83605; 83690; 83735; 83880; 84484; 85007; 85025; 85027; 85610; 85730; 86403; 87040; 87077; 87186; 87205; 93005; 94640; 94664; 94667; 94668; 96360; J3370; J7050; P9612